=== PATIENT | female | born 1950 | race Caucasian/White ===

== ENCOUNTER → 2017-01-07 06:39 | Day surgery (SDC) | payer MEDICARE, OTHER ==
--- NOTE | 2016-12-12 08:26 | HP ---
PREOPERATIVE HISTORY AND PHYSICAL: DATE OF SURGERY/ADMISSION: 01/07/17 DATE OF OFFICE VISIT/ENCOUNTER: 12/11/16 ATTENDING SURGEON: Lashonda Lea MD (dictated by MULU Hardy) PROCEDURE: Left ulnar nerve decompression at the elbow. CHIEF COMPLAINT: Numbness and tingling, left hand. HISTORY OF PRESENT ILLNESS: This is a 66-year-old female who is complaining of numbness and tingling in her left ulnar two fingers for the past two and a half years. It has gotten worse since October after she fell in a parking lot and hit her elbow on the ground. Since then, she is feeling increased weakness in her left hand and increased numbness and tingling in the hand. She recently had a nerve conduction study done, which showed ulnar neuropathy at the left elbow. She is interested in pursuing surgical intervention at this time in the form of left ulnar nerve decompression at the elbow. PAST MEDICAL HISTORY: 1. Type 2 diabetes. 2. Sleep apnea, wears a CPAP at night. 3. Hypertension. 4. Hypercholesterolemia. 5. Asthma. 6. Depression. 7. GERD. PAST SURGICAL HISTORY: 1. Bilateral breast reduction in 2015. 2. Cholecystectomy in 2000. 3. Tubal ligation in 1975. 4. Hysterectomy in 1979. 5. Eyelid lift, bilateral 2012. CURRENT MEDICATIONS: 1. Advair Diskus 250/50 mcg per dose 1 puff b.i.d. 2. Albuterol sulfate p.r.n. 3. Atorvastatin calcium 10 mg daily. 4. Caltrate 600 plus vitamin D, use as directed. 5. Escitalopram oxalate 20 mg daily. 6. Ferrous sulfate 325 mg twice a week. 7. Lisinopril/hydrochlorothiazide 10/12.5 mg daily. 8. Metformin/HCl 500 mg b.i.d. 9. Montelukast sodium 10 mg daily. 10. Multivitamin daily. 11. Naproxen 500 mg b.i.d. 12. Omeprazole 20 mg daily. 13. Vitamin C 500 mg daily. ALLERGIES: 1. ERYTHROMYCIN causes diarrhea. 2. IMODIUM causes hand swelling. 3. PENICILLIN causes hives. 4. TEDRAL causes dry heaves. FAMILY MEDICAL HISTORY: Significant for skin cancer, hypertension, and dementia. SOCIAL HISTORY: The patient is retired. She denies tobacco use, recreational drug use, and alcohol use. REVIEW OF SYSTEMS: General: Negative for fevers, chills, or night sweats. No known anesthesia problems in the past. HEENT: Negative for headache, lightheadedness, or syncopal episodes. Integumentary: Negative for abrasions, lesions, or open wounds. Cardiothoracic: Negative for chest pain, palpitations , or edema. Positive for hypertension. Pulmonary: Positive for shortness of breath with exertion and asthma. Negative for chronic cough or COPD. GI: Positive for GERD. Negative for nausea, vomiting, diarrhea, or constipation. : Negative for nocturia, urinary frequency, urgency, history of UTIs, or kidney problems. Musculoskeletal: Positive for current complaint. Negative for chronic or intermittent back pain or history of fractures. Neurological: Negative for paresthesia, numbness, history of seizure, stroke, or epilepsy. Endocrine: Positive for diabetes type 2. Negative for thyroid issues. Hematologic: Negative for easy bruising, anemia, excessive bleeding, or history of DVT. Infectious Disease: Negative for history of MRSA, hepatitis C , or HIV. PHYSICAL EXAMINATION GENERAL: Well-developed, well-nourished, 66-year-old female, in no acute distress. VITAL SIGNS: Height 5 feet 5-1/4 inches, weight 240 pounds, pulse rate 74, blood pressure 136/75. HEENT: Normocephalic, atraumatic. Pupils are equal, round, and reactive to light and accommodation. Extraocular movements are intact. NECK: Supple. No palpable lymph nodes. Throat is clear. PULMONARY: Lungs are clear to auscultation bilaterally. No wheezes, rales, or rhonchi. CARDIOVASCULAR: Regular rate and rhythm. S1, S2. No murmurs, rubs, or gallops. No edema. ABDOMEN: Positive bowel sounds, soft, and nontender. MUSCULOSKELETAL: On exam of her left upper extremity, she has a positive Tinel' s sign at the ulnar nerve at the elbow. She has decreased sensation to light touch over the ulnar nerve distribution in the hand. She has weakness with finger abduction compared to the right hand and a slight amount of dorsal interosseous wasting. She has good motion in her fingers, wrists, and elbow. Skin is intact. NEUROLOGIC: Alert and oriented x3. Cranial nerves II through XII are intact. Sensation is intact to light touch. IMAGING: EMG nerve conduction study shows ulnar nerve entrapment at the left elbow. ASSESSMENT: Ulnar neuropathy of the left elbow. PLAN: The patient is scheduled to undergo a left ulnar nerve decompression at the elbow with Dr. Lea on 01/07/17. She will follow up in the office 10 to 14 days postop for followup and suture removal. A prescription for [place] was e- scribed to the patient's pharmacy for postoperative pain management. MULU HARDY [id number]/[facility] #: [id number] MTDD
[~2017-01-07 06:39] MED LIST: Buffered Lidocaine 1% SYR 3ML* 3 ML/SYR SYRINGE INTRADERM ONE; Buffered Lidocaine 1% SYR 3ML* 3 ML/SYR SYRINGE ONE; Bupivacaine 0.5% SDV PF* 30 ML VIAL ONE; Clindamycin 900 MG IVPREMIX(* 900 MG/50 ML SDV IV ONE; KETAMINE HCL* 50 MG/ML 10 ML VIAL ONE; Lidocaine 1% INJ* 10 MG/ML 30 ML SDV ONE; Lidocaine 2% PF * 5 ML VIAL ONE; Midazolam* 1 MG/ML 2 ML VIAL (2 MG) ONE; Propofol* 10 MG/ML 20 ML BTL IV PUSH ONE; Sodium Citrate/Citric Acid* 15 ML UDC ONE; Sodium Citrate/Citric Acid* 15 ML UDC PO ONE; fentaNYL* 50 MCG/ML 2 ML VIAL (100 MCG VIAL) ONE
[2017-01-07 09:36] VITALS: BP 118/75
--- NOTE | 2017-01-07 23:36 | OP ---
DATE OF OPERATION: 01/07/[address] [facility] DATE OF : 52 SURGEON: Lashonda Lea MD [place] SUPERVISOR: MULU Hardy ANESTHESIOLOGIST: Jony Blackmon DO ANESTHESIA: Local MAC. PRE-OP DIAGNOSIS: Left ulnar nerve compression at the elbow. POST-OP DIAGNOSIS: Left ulnar nerve compression at the elbow. OPERATIVE PROCEDURE: Left ulnar nerve decompression. INDICATIONS: Yoli is a 66-year-old female with numbness and tingling in the ulnar nerve distribution of her left hand. Nerve conduction study shows ulnar nerve compression of the elbow. She presents for left ulnar nerve decompression at the elbow. ESTIMATED BLOOD LOSS: Zero. TOURNIQUET TIME: 25 minutes. DESCRIPTION OF PROCEDURE: The patient was brought to the operating room and was given a sedation anesthetic and a local infiltration of 10 cc of 1% plain lidocaine on the medial aspect of her left elbow. Skin of her left extremity was prepped and draped in the usual sterile fashion. The upper extremity was exsanguinated and the tourniquet elevated to 250 mmHg. A curvilinear incision was made centered between the medial epicondyle and the tip of the olecranon process. We dissected bluntly through the subcutaneous tissue down to the ulnar nerve proximal to the elbow. It was carefully dissected out proximally through the cubital tunnel where it was very very tight and then into the FCU muscle. The superficial and deep portion of the FCU fascia was divided and the muscle was divided and the nerve was completely freed up into the proximal forearm and into the distal aspect of the upper arm. The medial intermuscular septum was incised. The wound was copiously irrigated with saline. Hemostasis was achieved. The subcutaneous tissue was closed with 2-0 Polysorb and the skin with skin darlene. The wound was dressed with Xeroform, 4x4, Webril, and an Daniel wrap. The patient tolerated the procedure well and was brought to the recovery room in good condition. [id number]/[facility] #: [id number] MTDD
== END | disposition home or self-care (01) ==
LOC: OREAST 06:39
PROVIDERS: ATTEND Orthopaedic Surgery
DX: G56.22 Lesion of ulnar nerve, left upper limb (principal); I10 Essential (primary) hypertension; G47.33 Obstructive sleep apnea (adult) (pediatric); E11.9 Type 2 diabetes mellitus without complications
CPT/HCPCS: A9270-GY; J2250; J2704; J3010

== ENCOUNTER 2018-01-24 21:19 | Emergency (ER) | payer MEDICARE, OTHER ==
--- OUTSIDE RECORDS SUMMARY | 2018-01-24 21:27 | XMS REPORT ---
:1950 External Reference #:[id number] Author Organization [facility] Address [address] [place] [address] Phone [phone] Care Team Providers Name Role Phone Carson Wells MD Care Team Information City Director Unavailable Carson Wells MD Primary Care Physician Unavailable Payers Type Date Identification Numbers Payment Provider Subscriber Medicare Primary Effective: Policy Number: Medicare Belkis Hdz 2016 [id number] PayID: [id number] [address] [facility] [place] [address] Medigap Part B Effective: 2016 Policy Number: [id number] [facility] Yoli Hdz Expires: 2071 PayID: [id number] [place] [address] Problems Date Description Provider Status Onset: 05/29/1999 Essential hypertension Kingston Bush M.D. Active Onset: 01/13/2006 Gastroesophageal reflux disease Carson Wells M.D. Active Onset: 01/13/2006 Asthma without status asthmaticus Carson Wells M.D. Active Onset: 01/13/2006 Sleep apnea Carson Wells M.D. Active Onset: 02/05/2007 Depressive disorder Carson Wells M.D. Active Onset: 08/16/2013 Hyperlipidemia Carson Wells M.D. Active Onset: 03/17/2015 Type 2 diabetes mellitus Carson Wells M.D. Active Onset: 01/13/2006 Deficiency anemias Carson Wells M.D. Inactive Inactive: 03/07/2017 Onset: 08/13/2007 Obesity Carson Wells M.D. Inactive Inactive: 03/07/2017 Onset: 09/14/2012 Symptom of skin and integumentary Carson Wells M.D. Inactive tissue Inactive: 03/07/2017 Onset: 08/16/2013 Obstructive sleep apnea syndrome Carson Wells M.D. Inactive Inactive: 03/07/2017 Onset: 11/11/2014 Benign essential hypertension Carson Wells M.D. Inactive Inactive: 03/07/2017 Onset: 03/17/2015 Mixed hyperlipidemia Carson Wells M.D. Inactive Inactive: 03/07/2017 Onset: 12/25/2015 Disorder of bone Carson Wells M.D. Inactive Inactive: 03/07/2017 Onset: 12/25/2015 Candidal vulvovaginitis Carson Wells M.D. Inactive Inactive: 03/07/2017 Onset: 07/15/2016 Atypical depressive disorder Carson Wells M.D. Inactive Inactive: 03/07/2017 Onset: 11/15/2016 Immunization Carson Wells M.D. Inactive Inactive: 03/07/2017 Onset: 11/15/2016 Knee pain Carson Wells M.D. Inactive Inactive: 03/07/2017 Onset: 11/15/2016 Tinea cruris Carson Wells M.D. Inactive Inactive: 03/07/2017 Onset: 11/15/2016 Lesion of ulnar nerve Carson Wells M.D. Inactive Inactive: 03/07/2017 Family History Date Family Member(s) Problem(s) Comments First Sister Osteoporosis Social History Type Date Description Comments Marital Status Patient is Cigarette Use Never Smoked Cigarettes Smoking Patient has never smoked Allergies, Adverse Reactions, Alerts Date Description Reaction Status Severity Comments 08/04/1998 Penicillin active 03/29/2003 Imodium AD active 11/20/2004 Erythromycin active 09/14/2012 Tedral vomiting active Medications Medication Date Status Form Strength Qnty SIG Indications Ordering Provider Diflucan 01/15 Active Tablets 200mg 2tabs take one Brunilda C. by mouth justin Adame NP signs of yeast infection, repeat dose after 4 days. Terconazole 01/15 Active Cream 0.4% 45gm Insert one Brunilda C. applicator rojelio Adame NP vaginally at bedtime for 7 days Nystatin 09/11 Active Powder [id number] 1unit apply 2-3 Carson F. t/GM s times dipesh Wells M.D. Pristiq 03/07 Active Tablets ER 50mg 90tab 1 by mouth Carson F. 24HR s every day Joanne Wells Freestyle Test 02/05 Active Strips 100un test daily Carson F. its or as mihir Wells M.D. dx: e11.9 Freestyle lite Atorvastatin 02/19 Active Tablets 10mg 90tab 1 by mouth Carson F. Calcium /2014 s every day Joanne Wells Freestyle 02/08 Active Kit W/Device 1unit use as Carson F. Insulinx Blood /2014 s directed Russell Glucose dx:250.02 M.DJulieta Monitoring System Freestyle 02/07 Active Misc 1Box test twice Carson F. Lancets /2014 daily Russell, dx:250.02 M.DJulieta freestyle litraji Metformin HCL ER 12/07 Active Tablets ER 500mg 90tab 1 by mouth Carson F. /2014 24HR s every day Joanne Wells Lisinopril-[place] 11/11 Active Tablets 10-12.5mg 90tab 1 by mouth Carson F. chlorothiazide /2013 s every day Joanne Wells Advair 250/50 06/22 Active 250/50 3unit one Carson F. /2004 s inhalation mike Wells bid MLola Singulair 06/22 Active Tablets 10mg 90tab 1 po qd Carson F. s Joanne Wells Omeprazole 03/13 Active 20mg 90uni 1 po qd Carson F. /2004 ts Joanne Wells Albuterol 04/21 Active 3unit 2 puffs Carson F. Inhaler /2000 s every 3-4 deo Wells M.D. needed Caltrate 600+D Active Tablets 600-800mg every day Unknown Plus Minerals /0000 -Unit other than fri and friday. Iron 00 Active Tablets 325(65Fe) 1 tab by Unknown /0000 mg mouth wed and sun Multivitamins 00 Active Capsules 1 by mouth Unknown /0000 every day Vitamin C Active Tablets 500mg take one Unknown /0000 every day Montelukast 0000 Active Tablets 10mg 1 by mouth Unknown Sodium /0000 every day Metrogel-Vaginal 01/27 Hx Gel 0.75% 70gm 1 applicator Evelyn, - ful by way FOOD CROPS FARM HAND 08/10 of at bedtime x 7 days Diflucan 11/15 Hx Tablets 150mg 1tabs 1 by mouth Carson F. times Shallmorro, - once, M.D. 12/24 Freestyle Test 02/05 Hx Strips test daily . dx: e11.9 Russell, - M.D. 02/05 Diflucan 12/25 Hx Tablets 150mg 1tabs 1 by mouth Carson F. zenon Wells, - once, M.D. 07/15 Zostavax 08/28 Hx Solution [id number] 1dose inject . Rec 0.65ML Russell, - M.D. 11/15 Ibuprofen 07/12 Hx Tablets 800mg 180ta 1 by mouth 724.5 Bernice /2015 bs q8 hours Evelyn, - two times FOOD CROPS F[employer] HAND 08/28 a day food Cyclobenzaprine 07/12 Hx Tablets 10mg 60tab take one 4.5 [facility] s tablet by Evelyn, - mouth FOOD CROPS FARM HAND 08/28 twice a day as needed pain Oxycodone-Acetam 07/12 Hx Tablets 5-325mg 100ta 1 or 2 by 724.5 [place] inophen bs mouth Evelyn, - every 6 FOOD CROPS F[employer] HAND 08/28 hours needed for pain Freestyle 07/12 Hx Strips 1Box blood Carson F. Insulinx Blood /2014 sugar Shallish, Glucose Test - checks M.D. Strips 02/05 once daily Freestyle 02/07 Hx Strips 100un test blood Carson F. Insulinx Blood its sugar Shallish, Glucose Test - twice a M.D. Strips 07/12 day dx: 250.02 Nystatin 05/23 Hx Powder [id number] 1bott apply bid Carson F. t/GM le jazmínn Russell, - M.D. 11/11 Dyazide 05/23 Hx Capsules 37.5-25mg 60cap 1 po qd Carson F. s Russell - M.DJulieta 11/11 Gentak 08/16 Hx Solution 0.3% 5ml 1-2 gtts Carson F. qid for Russell, - 3-4 days M.D. 11/11 Betamethasone 11/07 Hx Cream 0.05% 45gm apply bid Carson F. Dipropionate -tid prn Russell - M.DJulieta 11/15 Mometasone 02/13 Hx Cream 0.1% 45gm apply tid Carson F. Furoate prn Russell - M.DJulieta 09/14 Lexapro 12/03 Hx Tablets 20mg 90tab 1 po qd Carson F. s Isabel Wells M.DJulieta 03/07 Venlafaxine HCL 08/12 Hx Tablets ER 75mg 30tab take one Carson F. ER 24HR s tablet by Russell, - mouth one M.D. 09/14 time daily Caltrate 600+D 08/12 Hx Chewtabs 600-400mg 1 po qd Carson F. -Unit Russell - M.Alia 07/12 Iron 08/12 Hx Tablets 240(27Fe) OTC 1 po wed . mg & Isabel Quezada M.Alia 11/15 Topicort 08/10 Hx Cream 0.25% 1Tub rub in bid Carson F. prn Russell - Kathy.Alia 02/13 Mask Of 06/17 Hx Carson F. Yojana Lees Russell, And Supplies For - M.D. Cpap 08/10 Lexapro 06/13 Hx Tablets 20mg 90tab 1 po qd Carson F. Isabel Barboza.DJulieta 08/12 Iron 06/13 Hx Tablets 325(65Fe) OTC 1 po qd / Carson F. mg OTC Isabel Wells.DJulieta 08/12 Cpap Supplies 05/15 Hx mask of Carson F. Russell lees, Isabel chow M.D. 02/13 supplies dx sleep apnea 780.57 Econazole 10/24 Hx Cream 1% 85gm Apply Carson F. Nitrate topically Russell, - to M.D. 12/24 affected area daily Hydrocortisone 10/24 Hx Cream 0.2% 60gm Apply Carson F. Valerate sparingly Russell, - topically M.DJulieta 11/15 to affected area 2 times a day Lexapro 10/24 Hx Tablets 20mg 135ta 1 1/2po qd Carson F. /2008 bs Russell - M.Alia 06/13 Caltrate 600+D 03/26 Hx Chewtabs 2 po qd Carson F. Plus Russell - M.Alia 08/12 Iron 12/06 Hx Tablets 1 PO qd Carson F. /2008 Russell - M.Alia 06/13 Sudatuss DM 12/06 Hx Syrup Carson F. /2008 Russell - M.DJulieta 12/06 Levaquin 12/06 Hx Tablets 500mg 7tabs 1 po qd Carson F. /2008 Russell - M.DJulieta 02/13 Cpap Mask Of 10/19 Hx dx sleep Carson F. Choice And apnea Russell, [place] - M.DJulieta 02/13 Boniva 08/13 Hx 150mg 3unit 1 Qmonth Carson F. /2006 mike Wells - M.Alia 02/16 Ceftin 02/27 Hx Tablets 250mg 14tab 1 po bid Carson F. /2006 mike Wells - M.DJulieta 08/13 Actonel 01/14 Hx Tablets 35mg;500 12tab Take as Carson F. Calcium /2006 mg s Directed Russell - M.DJulieta 08/13 Nasonex 12/18 Hx Suspension 50mcg 1unit 2 sprays Carson F. Intranasal King /2006 s martin Wells - nostril qd M.DJulieta 12/06 Feso4 07/01 Hx 325mg 60uni 1 po bid Carson F. /2004 ts Russell - M.DJulieta 01/13 Lexapro 05/03 Hx 10mg 90uni 1 po qd Carson F. /2003 Isabel Razo M.D. 10/24 Vioxx 01/05 Hx 25mg 30uni 1 po qd Carson F. Isabel Razo M.D. 05/03 Physical Therapy 01/05 Hx treatment Carson F. and Isabel Wells M.D. 05/03 Right Shoulder Pain Celexa 06/10 Hx 20mg 60uni 1 po qd Carson F. Isabel Razo M.D. 05/04 Aciphex 02/11 Hx 20mg 90uni 1 po qd Carson F. Isabel Razo M.D. 03/13 Flovent 02/11 Hx 110mcg 3unit 2 puffs qd Carson F. Isabel Barboza M.D. 06/22 Naproxen 02/11 Hx 375mg 50uni One tid Kingston Terrell ts For One Isabel Bush M.D. 02/14 tid prn /2002 Azmacort Inhaler 04/21 Hx 4unit Two Puffs Kingston Terrell s qid prn Isabel Bush M.D. 02/11 Clarinex 04/21 Hx 10mg 30uni 1 qd prn Kingston Terrell Isabel Jenkins M.D. 11/20 Zithromax 09/19 Hx 250mg 6unit 2 Tabs Day Kingston Julieta s 1 Isabel Bush M.D. 09/24 Tab qd Days 2 Thru 5 Doxycycline 09/28 Hx 100mg 20uni 1 PO bid Kingston Julieta Isabel Jenkins M.D. 10/08 Adalat 09/02 Hx 30mg 30uni 1 qd Kingston Terrell Isabel Jenkins M.D. 03/11 Alupent 09/02 Hx 0unit Use as Kingston Terrell s Isabel Centeno M.D. 09/02 Azmacort Inhaler 09/02 Hx 0unit Use as Kingston Terrell s Isabel Centeno M.D. 09/28 Proventil HFA 09/02 Hx 2unit 2 Puffs Kingston Terrell /1996 s Q4H prn Isabel Bush M.D. 04/21 Immunizations CPT Code Status Date Vaccine Lot # [id number] Given 11/03/2017 High-Dose, Influenza Virus Vacccine-fluzone 65 [id number] and older 14821 Given 11/15/2016 Influenza Vac, Quadrivalent, Slit Virus, Im [id number] 43148 Given 12/25/2015 Zostivax [id number] 50025 Given 08/28/2015 Influenza Vac, Quadrivalent, Slit Virus, Im [id number] 73788 Given 08/16/2013 DO Not Use Split Influenza Virus Vaccine [id number] 11860 Given 09/14/2012 DO Not Use Split Influenza Virus Vaccine [id number] 56969 Given 08/12/2011 DO Not Use Split Influenza Virus Vaccine [id number] 89007 Given 08/10/2010 Pneumococcal Immunization [id number] 36323 Given 08/10/2010 DO Not Use Split Influenza Virus Vaccine [id number] 61067 Given 02/05/2007 Tdap Tetanus, W Pertussis [id number] 83090 Given 09/29/2006 DO Not Use Split Influenza Virus Vaccine [id number] 37276 Given 09/05/2005 DO Not Use Split Influenza Virus Vaccine [id number] Given 05/31/1985 Tetanus And Diptheria Adult Preservative Free >7Yrs Vital Signs Date Vital Result Comment 01/15/2018 BP Systolic 122 mmHg BP Diastolic 62 mmHg Heart Rate 88 /min Body Temperature 96.8 F Respiratory Rate 18 /min Height 65.5 inches 5'5.50" measured Weight 234.00 lb BMI (Body Mass Index) 38.3 kg/m2 08/11/2017 BP Systolic 134 mmHg BP Diastolic 72 mmHg Heart Rate 96 /min Body Temperature 97.3 F Height 65.5 inches 5'5.50" measured Weight 233.12 lb BMI (Body Mass Index) 38.2 kg/m2 03/07/2017 BP Systolic 118 mmHg BP Diastolic 70 mmHg Heart Rate 78 /min Body Temperature 98.1 F Respiratory Rate 16 /min Height 65.5 inches 5'5.50" measured Weight 226.00 lb BMI (Body Mass Index) 37.0 kg/m2 01/27/2017 BP Systolic 120 mmHg BP Diastolic 64 mmHg Heart Rate 72 /min Body Temperature 98.1 F Height 65.5 inches 5'5.50" measured Weight 227.50 lb BMI (Body Mass Index) 37.3 kg/m2 12/25/2016 BP Systolic 128 mmHg BP Diastolic 68 mmHg Heart Rate 78 /min Body Temperature 98.4 F Height 65.5 inches 5'5.50" measured Weight 238.38 lb BMI (Body Mass Index) 39.1 kg/m2 11/15/2016 BP Systolic 138 mmHg BP Diastolic 64 mmHg Heart Rate 90 /min Body Temperature 97.7 F Respiratory Rate 16 /min Height 65.5 inches 5'5.50" measured Weight 238.38 lb BMI (Body Mass Index) 39.1 kg/m2 07/15/2016 BP Systolic 130 mmHg BP Diastolic 80 mmHg Heart Rate 78 /min Body Temperature 99.1 F Respiratory Rate 16 /min Height 65.5 inches 5'5.50" measured Weight 245.00 lb BMI (Body Mass Index) 40.1 kg/m2 12/25/2015 BP Systolic 144 mmHg BP Diastolic 84 mmHg Heart Rate 78 /min Body Temperature 98.1 F Respiratory Rate 16 /min Height 65.75 inches 5'5.75" Weight 237.00 lb BMI (Body Mass Index) 38.5 kg/m2 08/28/2015 BP Systolic 122 mmHg BP Diastolic 84 mmHg Heart Rate 78 /min Body Temperature 97.8 F Respiratory Rate 17 /min Height 65.75 inches 5'5.75" Weight 225.38 lb BMI (Body Mass Index) 36.6 kg/m2 07/26/2015 BP Systolic 128 mmHg BP Diastolic 74 mmHg Heart Rate 84 /min Body Temperature 97.6 F Respiratory Rate 16 /min Height 65.75 inches 5'5.75" Weight 225.00 lb BMI (Body Mass Index) 36.6 kg/m2 07/12/2015 BP Systolic 112 mmHg BP Diastolic 74 mmHg Heart Rate 88 /min Body Temperature 97.8 F Respiratory Rate 16 /min Height 65.75 inches 5'5.75" Weight 220.00 lb BMI (Body Mass Index) 35.8 kg/m2 03/17/2015 BP Systolic 130 mmHg BP Diastolic 76 mmHg Heart Rate 96 /min Body Temperature 98.0 F Height 65.75 inches 5'5.75" Weight 232.50 lb with medical boot BMI (Body Mass Index) 37.8 kg/m2 12/30/2014 BP Systolic 142 mmHg BP Diastolic 84 mmHg Heart Rate 66 /min Body Temperature 97.6 F Respiratory Rate 16 /min Height 65.75 inches 5'5.75" Weight 250.00 lb BMI (Body Mass Index) 40.7 kg/m2 11/11/2014 BP Systolic 154 mmHg BP Diastolic 92 mmHg Heart Rate 84 /min Body Temperature 97.3 F Respiratory Rate 16 /min Height 65.75 inches 5'5.75" Weight 250.00 lb BMI (Body Mass Index) 40.7 kg/m2 05/23/2014 BP Systolic 150 mmHg BP Diastolic 90 mmHg Heart Rate 76 /min Body Temperature 98.6 F Respiratory Rate 15 /min Height 65.75 inches 5'5.75" Weight 261.00 lb BMI (Body Mass Index) 42.4 kg/m2 08/16/2013 BP Systolic 130 mmHg BP Diastolic 80 mmHg Heart Rate 72 /min Body Temperature 98.3 F Respiratory Rate 14 /min Height 65.75 inches 5'5.75" Weight 259.00 lb BMI (Body Mass Index) 42.1 kg/m2 05/10/2013 BP Systolic 132 mmHg BP Diastolic 90 mmHg Heart Rate 68 /min Body Temperature 96.7 F Respiratory Rate 18 /min Height 65.75 inches 5'5.75" Weight 264.00 lb BMI (Body Mass Index) 42.9 kg/m2 01/05/2013 BP Systolic 160 mmHg BP Diastolic 92 mmHg Heart Rate 66 /min Body Temperature 98.1 F Height 65.75 inches 5'5.75" Weight 257.50 lb BMI (Body Mass Index) 41.9 kg/m2 11/07/2012 BP Systolic 144 mmHg BP Diastolic 88 mmHg Heart Rate 74 /min Body Temperature 97.8 F Height 65.75 inches 5'5.75" Weight 256.00 lb BMI (Body Mass Index) 41.6 kg/m2 09/14/2012 BP Systolic 122 mmHg BP Diastolic 84 mmHg Heart Rate 66 /min Body Temperature 98.5 F Height 65.75 inches 5'5.75" Weight 244.00 lb BMI (Body Mass Index) 39.7 kg/m2 Right Visual Acuity Distance 20/30 corrected Left Visual Acuity Distance 20/30 corrected 02/14/2012 BP Systolic 140 mmHg BP Diastolic 80 mmHg Heart Rate 72 /min Body Temperature 97.9 F Height 65.75 inches 5'5.75" Weight 257.00 lb BMI (Body Mass Index) 41.8 kg/m2 08/12/2011 BP Systolic 132 mmHg BP Diastolic 82 mmHg Heart Rate 68 /min Body Temperature 97.0 F Height 65.75 inches 5'5.75" Weight 261.00 lb BMI (Body Mass Index) 42.4 kg/m2 08/10/2010 BP Systolic 120 mmHg BP Diastolic 82 mmHg Heart Rate 72 /min Body Temperature 98.3 F Height 65.75 inches 5'5.75" Weight 238.00 lb BMI (Body Mass Index) 38.7 kg/m2 06/13/2010 BP Systolic 148 mmHg BP Diastolic 60 mmHg Heart Rate 88 /min Body Temperature 98.7 F Respiratory Rate 20 /min Height 65.75 inches 5'5.75" Weight 245.00 lb BMI (Body Mass Index) 39.8 kg/m2 04/27/2010 BP Systolic 130 mmHg BP Diastolic 92 mmHg Heart Rate 80 /min Weight 246.00 lb 10/24/2009 BP Systolic 136 mmHg BP Diastolic 76 mmHg Heart Rate 76 /min Respiratory Rate 18 /min Height 65.75 inches 5'5.75" Weight 243.00 lb BMI (Body Mass Index) 39.5 kg/m2 02/16/2009 BP Systolic 132 mmHg BP Diastolic 80 mmHg Heart Rate 76 /min Body Temperature 98.3 F Weight 233.00 lb 12/06/2008 BP Systolic 132 mmHg BP Diastolic 80 mmHg Heart Rate 80 /min Body Temperature 99.1 F Height 65.75 inches 5'5.75" Weight 233.00 lb BMI (Body Mass Index) 37.9 kg/m2 08/13/2007 BP Systolic 138 mmHg BP Diastolic 74 mmHg Heart Rate 80 /min Body Temperature 97.7 F Height 65.75 inches 5'5.75" Weight 220.00 lb BMI (Body Mass Index) 35.8 kg/m2 02/27/2007 Heart Rate 80 /min Body Temperature 98.7 F Height 65.75 inches 5'5.75" Weight 221.00 lb BMI (Body Mass Index) 35.9 kg/m2 02/05/2007 BP Systolic 120 mmHg BP Diastolic 64 mmHg Heart Rate 66 /min Body Temperature 98.9 F Height 65.75 inches 5'5.75" Weight 219.00 lb BMI (Body Mass Index) 35.6 kg/m2 01/22/2007 BP Systolic 118 mmHg BP Diastolic 70 mmHg Heart Rate 72 /min Body Temperature 99.1 F Height 65.5 inches 5'5.50" 12/18/2006 BP Systolic 130 mmHg BP Diastolic 70 mmHg Heart Rate 72 /min Body Temperature 99.3 F Height 65.5 inches 5'5.50" 09/29/2006 BP Systolic 128 mmHg BP Diastolic 76 mmHg Heart Rate 80 /min Height 65.5 inches 5'5.50" Weight 215.00 lb BMI (Body Mass Index) 35.2 kg/m2 01/13/2006 BP Systolic 160 mmHg BP Diastolic 90 mmHg Heart Rate 80 /min Height 65.5 inches 5'5.50" Weight 206.00 lb BMI (Body Mass Index) 33.8 kg/m2 09/05/2005 BP Systolic 130 mmHg BP Diastolic 80 mmHg Heart Rate 78 /min Weight 202.00 lb 06/22/2005 BP Systolic 130 mmHg BP Diastolic 90 mmHg Heart Rate 100 /min Body Temperature 98.8 F O2 % BldC Oximetry 98 % Weight 206.00 lb 11/20/2004 BP Systolic 150 mmHg BP Diastolic 70 mmHg Heart Rate 100 /min Weight 208.00 lb 05/03/2004 BP Systolic 138 mmHg BP Diastolic 70 mmHg Heart Rate 66 /min Weight 195.00 lb 01/05/2004 BP Systolic 156 mmHg BP Diastolic 90 mmHg Heart Rate 84 /min Weight 202.00 lb 02/14/2003 BP Systolic 132 mmHg BP Diastolic 80 mmHg Heart Rate 80 /min Weight 198.00 lb 06/10/2002 BP Systolic 142 mmHg BP Diastolic 92 mmHg Heart Rate 76 /min Weight 195.00 lb 02/11/2002 BP Systolic 160 mmHg BP Diastolic 90 mmHg Heart Rate 74 /min Weight 184.00 lb 04/21/2001 BP Systolic 124 mmHg BP Diastolic 78 mmHg Heart Rate 76 /min Weight 174.00 lb 09/19/2000 BP Systolic 128 mmHg LA SM Cuff BP Diastolic 80 mmHg LA SM Cuff Body Temperature 97.5 F Weight 162.00 lb 03/11/2000 BP Systolic 130 mmHg LA SM Cuff BP Diastolic 88 mmHg LA SM Cuff Weight 152.00 lb 09/28/1999 BP Systolic 140 mmHg BP Diastolic 82 mmHg Body Temperature 98.0 F Weight 151.00 lb 05/29/1999 BP Systolic 120 mmHg LA SM Cuff BP Diastolic 74 mmHg LA SM Cuff Weight 172.00 lb 08/04/1998 BP Systolic 122 mmHg Ra LG Cuff BP Diastolic 72 mmHg Ra LG Cuff Body Temperature 98.6 F Weight 195.00 lb 09/02/1997 BP Systolic 138 mmHg BP Diastolic 72 mmHg Weight 194.00 lb Results Test Date Test Result H/L Range Note Comprehensive Metabolic Prof 08/19/2017 Sodium 136 mEq/L 134-149 Potassium 4.1 mEq/L 3.6-5.5 Chloride 98 mEq/L 94-112 Carbon Dioxide 26 mEq/L 21-32 Glucose 168 mg/dL High 70-105 1 BUN 12 mg/dL 6-26 Creatinine 1.0 mg/dL 0.6-1.4 BUN/Creat Ratio 12.0 CALC 8.0-36.0 Calcium 9.3 mg/dL 8.6-10.2 Total Protein 6.6 g/dL 6.4-8.3 Albumin 4.3 g/dL 3.8-5.5 Globulin 2.3 g/dL 2.0-4.8 A/G Ratio 1.9 CALC 0.6-2.3 Alk. Phosphatase 71 U/L 30-110 Alt (SGPT) 19 U/L 7-35 Ast (Sgot) 16 U/L 5-34 Total Bilirubin 0.6 mg/dL 0.2-1.3 GFR Non- 59 ml/min/1.73m^ Low >=60 GFR >60 ml/min/1.73m^ >=60 Lipid Profile 08/19/2017 Cholesterol 159 mg/dL 120-200 Triglycerides 123 mg/dL 30-200 HDL Cholesterol 42 mg/dL 30-85 LDL (Calculated) 92 CALC 0-129 VLDL Cholesterol 25 mg/dL 0-50 HDL Risk Factor 3.8 CALC 0.0-4.4 Complete Blood Count 08/19/2017 WBC 7.7 x10^3/UL 3.6-9.6 RBC 5.14 x10^6/UL 3.90-5.70 HGB 15.4 g/dL 12.1-17.2 HCT 47 % 36-50 MCV 91.0 fL 82.2-97.4 MCH 30.0 pg 27.6-33.3 MCHC 33.0 g/dL 33.0-35.5 RDW 14.0 % High 11.6-13.7 PLT 305 x10^3/UL 150-400 MPV 6.4 fL Low 7.4-10.4 Gran # 4.9 x10^3/UL 1.5-7.2 Lymph# 2.4 x10^3/UL 0.7-4.9 Hardin# 0.4 x10^3/UL 0.1-0.9 Gran % 62.3 % 42.2-75.2 Lymph % 32.0 % 20.5-51.1 Hardin% 5.7 % 1.7-9.3 Laboratory test finding 08/19/2017 TSH 3.07 mIU/L 0.50-6.00 CK 68 U/L 26-140 2 Laboratory test finding 08/19/2017 Hemoglobin A1c (Fma) 6.9 % High 4.1- 5.7 Laboratory test finding 03/04/2017 Hemoglobin A1c (Fma) 6.2 % % High 4.1- 5.7 Laboratory test finding 01/07/2017 Point of Care Glucose 130 mg/dL High 74 -106 3 Complete Blood Count 12/25/2016 WBC 10.1 x10^3/UL High 3.6-9.6 RBC 4.56 x10^6/UL 3.90-5.70 HGB 14.2 g/dL 12.1-17.2 HCT 41 % 36-50 MCV 90.0 fL 82.2-97.4 MCH 31.0 pg 27.6-33.3 MCHC 34.4 g/dL 33.0-35.5 RDW 14.1 % High 11.6-13.7 PLT 286 x10^3/UL 150-400 MPV 6.4 fL Low 7.4-10.4 Gran # 7.0 x10^3/UL 1.5-7.2 Lymph# 2.7 x10^3/UL 0.7-4.9 Hardin# 0.4 x10^3/UL 0.1-0.9 Gran % 69.0 % 42.2-75.2 Lymph % 26.8 % 20.5-51.1 Hardin% 4.2 % 1.7-9.3 Laboratory test 12/25/2016 Hemoglobin A1c (Fma) 6.8 % High 4.1-5.7 finding Laboratory test 08/13/2016 Point of Care Glucose 196 mg/dL High 74-106 4 finding Laboratory test 08/13/2016 Point of Care Glucose 183 mg/dL High 74-106 5 finding Laboratory test 08/13/2016 Point of Care Glucose 219 mg/dL High 74-106 6 finding Laboratory test 08/13/2016 Point of Care Glucose 205 mg/dL High 74-106 7 finding Laboratory test 08/13/2016 Surgical Pathology SEE RESULT BELOW 8 finding CBC Auto Diff 08/07/2016 White Blood Count 8.2 10^3/uL 3.5-10.8 Red Blood Count 4.94 10^6/uL 4.0-5.4 Hemoglobin 14.6 g/dL 12.0-16.0 Hematocrit 44 % 35-47 Mean Corpuscular Volume 89 fL 80-97 Mean Corpuscular Hemoglobin 30 pg 27-31 Mean Corpuscular HGB Conc 33 g/dL 31-36 Red Cell Distribution Width 14 % 10.5-15 Platelet Count 260 10^3/uL 150-450 Mean Platelet Volume 8 um3 7.4-10.4 Abs Neutrophils 4.7 10^3/uL 1.5-7.7 Abs Lymphocytes 2.4 10^3/uL 1.0-4.8 Abs Monocytes 0.5 10^3/uL 0-0.8 Abs Eosinophils 0.5 10^3/uL 0-0.6 Abs Basophils 0.1 10^3/uL 0-0.2 Abs Nucleated RBC 0.01 10^3/uL Granulocyte % 58.1 % 38-83 Lymphocyte % 29.4 % 25-47 Monocyte % 5.8 % 1-9 Eosinophil % 5.9 % 0-6 Basophil % 0.8 % 0-2 Nucleated Red Blood Cells % 0.1 Type & Screen 08/07/2016 Patient Blood Type O Positive Antibody Screen NEGATIVE Ua - Micro (Fma) 12/25/2015 Appearance clear Color yellow Glucose, Urine (Fma/CMC/CTX) neg Bilirubin neg Ketones neg SP Grav 1.015 Blood small PH 5.5 Protein neg Urobil 0.2 Nitrite neg Leukocytes (Fma/CMC/Centrex) neg Hyaline - /Lpf Granular - /Lpf WBC (Fma,Centrex) - RBC 0-1 Mucus - /Lpf Epith rare /Lpf Bacteria - /Hpf Amorphous - /Lpf Crystals, Fluid (Fma/CMC/CTX) - Z#Comments - Laboratory test finding 12/25/2015 Hemoglobin A1c (Fma/CMC,CX) 6.3 % High 4.1-5.7 Microalb, Random (Fma/CMC/CTX) <5.0 mg/L mg/L 0.5-37 Vaginitis/Vaginosis Dna Probe 12/25/2015 Allie species Negative Negative 9, 10 Gardnerella vaginalis Negative Negative 9, 11 Trichomonas vaginalis Negative Negative 9, 12 Comprehensive Metabolic Prof 12/25/2015 Sodium 137 mEq/L 134-149 Potassium 4.0 mEq/L 3.6-5.5 Chloride 94 mEq/L 94-112 Carbon Dioxide 30 mEq/L 21-32 Glucose 176 mg/dL High 70-105 13 BUN 18 mg/dL 6-26 Creatinine 1.0 mg/dL 0.6-1.4 BUN/Creat Ratio 18.0 CALC 8.0-36.0 Calcium 9.5 mg/dL 8.6-10.2 Total Protein 7.1 g/dL 6.4-8.3 Albumin 4.1 g/dL 3.8-5.5 Globulin 3.0 g/dL 2.0-4.8 A/G Ratio 1.4 CALC 0.6-2.3 Alk. Phosphatase 89 U/L 30-110 Alt (SGPT) 16 U/L 7-35 Ast (Sgot) 21 U/L 5-34 Total Bilirubin 0.4 mg/dL 0.2-1.3 GFR Non- 59 ml/min/1.73m^ Low >=60 GFR >60 ml/min/1.73m^ >=60 Lipid Profile 12/25/2015 Cholesterol 160 mg/dL 120-200 Triglycerides 136 mg/dL 30-200 HDL Cholesterol 45 mg/dL 30-85 LDL (Calculated) 88 CALC 0-129 VLDL Cholesterol 27 mg/dL 0-50 HDL Risk Factor 3.6 CALC 0.0-4.4 Laboratory test finding 12/25/2015 Free T4 1.27 ng/dL 0.75-1.54 TSH 4.22 mIU/L 0.50-6.00 CK 68 U/L 26-140 Complete Blood Count 12/25/2015 WBC 7.3 x10^3/UL 3.6-9.6 RBC 4.76 x10^6/UL 3.90-5.70 HGB 14.6 g/dL 12.1-17.2 HCT 43 % 36-50 MCV 91.0 fL 82.2-97.4 MCH 30.8 pg 27.6-33.3 MCHC 33.7 g/dL 33.0-35.5 RDW 13.8 % High 11.6-13.7 PLT 251 x10^3/UL 150-400 MPV 6.9 fL Low 7.4-10.4 Gran # 5.1 x10^3/UL 1.5-7.2 Lymph# 2.0 x10^3/UL 0.7-4.9 Hardin# 0.2 x10^3/UL 0.1-0.9 Gran % 67.8 % 42.2-75.2 Lymph % 28.3 % 20.5-51.1 Hardin% 3.9 % 1.7-9.3 Comprehensive Metabolic Prof 08/28/2015 Sodium 140 mEq/L 134-149 Potassium 4.0 mEq/L 3.6-5.5 Chloride 99 mEq/L 94-112 Carbon Dioxide 27 mEq/L 21-32 Glucose 122 mg/dL High 70-105 14 BUN 24 mg/dL 6-26 Creatinine 1.0 mg/dL 0.6-1.4 BUN/Creat Ratio 24.0 CALC 8.0-36.0 Calcium 10.2 mg/dL 8.6-10.2 Total Protein 7.4 g/dL 6.4-8.3 Albumin 4.4 g/dL 3.8-5.5 Globulin 3.0 g/dL 2.0-4.8 A/G Ratio 1.5 CALC 0.6-2.3 Alk. Phosphatase 98 U/L 30-110 15 Alt (SGPT) 17 U/L 7-35 Ast (Sgot) 16 U/L 5-34 Total Bilirubin 0.3 mg/dL 0.2-1.3 GFR Non- 60 ml/min/1.73m^ >=60 GFR >60 ml/min/1.73m^ >=60 Lipid Profile 08/28/2015 Cholesterol 173 mg/dL 120-200 Triglycerides 196 mg/dL 30-200 HDL Cholesterol 46 mg/dL 30-85 LDL (Calculated) 88 CALC 0-129 VLDL Cholesterol 39 mg/dL 0-50 HDL Risk Factor 3.8 CALC 0.0-4.4 Complete Blood Count 08/28/2015 WBC 10.3 x10^3/UL High 3.6-9.6 RBC 5.00 x10^6/UL 3.90-5.70 HGB 15.2 g/dL 12.1-17.2 HCT 46 % 36-50 MCV 91.0 fL 82.2-97.4 MCH 30.5 pg 27.6-33.3 MCHC 33.4 g/dL 33.0-35.5 RDW 14.0 % High 11.6-13.7 PLT 298 x10^3/UL 150-400 MPV 6.7 fL Low 7.4-10.4 Gran # 6.3 x10^3/UL 1.5-7.2 Lymph# 3.5 x10^3/UL 0.7-4.9 Hardin# 0.5 x10^3/UL 0.1-0.9 Gran % 60.6 % 42.2-75.2 Lymph % 34.2 % 20.5-51.1 Hardin% 5.2 % 1.7-9.3 Laboratory test finding 08/28/2015 TSH 3.49 mIU/L 0.50-6.00 CK 57 U/L 26-140 Laboratory test finding 08/28/2015 Hemoglobin A1c (Fma/CMC,CX) 6.3 % High 4.1-5.7 Microalb, Random (Fma/CMC/CTX) <5.0 mg/L 0.5-37 Laboratory test finding 07/07/2015 Urine Culture And SEE RESULT 16 Sensitivities BELOW Comprehensive Metabolic 02/07/2015 Sodium 138 mEq/L 134-149 Prof Potassium 4.0 mEq/L 3.6-5.5 Chloride 99 mEq/L 94-112 Carbon Dioxide 28 mEq/L 21-32 Glucose 129 mg/dL High 70-105 17 BUN 21 mg/dL 6-26 Creatinine 1.1 mg/dL 0.6-1.4 BUN/Creat Ratio 19.1 CALC 8.0-36.0 Calcium 9.9 mg/dL 8.6-10.2 Total Protein 7.7 g/dL 6.4-8.3 Albumin 4.5 g/dL 3.8-5.5 Globulin 3.2 g/dL 2.0-4.8 A/G Ratio 1.4 CALC 0.6-2.3 Alk. Phosphatase 85 U/L 30-110 Alt (SGPT) 24 U/L 7-35 Ast (Sgot) 19 U/L 5-34 Total Bilirubin 0.6 mg/dL 0.2-1.3 Lipid Profile 02/07/2015 Cholesterol 209 mg/dL High 120-200 Triglycerides 120 mg/dL 30-200 HDL Cholesterol 40 mg/dL 30-85 LDL (Calculated) 145 CALC High 0-129 VLDL Cholesterol 24 mg/dL 0-50 HDL Risk Factor 5.2 CALC High 0.0-4.4 Complete Blood Count 02/07/2015 WBC 8.4 x10^3/UL 3.6-9.6 RBC 5.07 x10^6/UL 3.90-5.70 HGB 15.7 g/dL 12.1-17.2 HCT 48 % 36-50 MCV 94.0 fL 82.2-97.4 MCH 30.9 pg 27.6-33.3 MCHC 33.0 g/dL 33.0-35.5 RDW 12.5 % 11.6-13.7 PLT 277 x10^3/UL 150-400 MPV 7.6 fL 7.4-10.4 Gran # 5.6 x10^3/UL 1.5-7.2 Lymph# 2.6 x10^3/UL 0.7-4.9 Hardin# 0.2 x10^3/UL 0.1-0.9 Gran % 64.7 % 42.2-75.2 Lymph % 31.9 % 20.5-51.1 Hardin% 3.4 % 1.7-9.3 Laboratory test finding 02/07/2015 Free T4 1.20 ng/dL 0.75-1.54 18 TSH 3.16 mIU/L 0.50-6.00 Laboratory test finding 02/07/2015 Hemoglobin A1c 6.8 % High 4.1-5.7 (Fma/CMC,CX) Laboratory test finding 11/26/2014 Glucose 176 mg/dL High 70-100 Blood Urea Nitrogen 10 mg/dL 6-24 Creatinine 11/26/2014 Creatinine 0.95 mg/dL 0.51-0.95 Egfr Non- 59.4 >60 Egfr 76.4 >60 19 Laboratory test finding 11/26/2014 Hemoglobin A1c 8.1 % High Less than 6.0 20 Comprehensive Metabolic Prof 05/10/2013 Albumin 4.1 g/dL 3.8-5.5 Alk. Phos. 90 U/L 30-110 Alt (SGPT) 29 U/L 7-35 Ast (Sgot) 24 U/L 5-34 BUN 12 mg/dL 6-26 Calcium 9.0 mg/dL 8.6-10.2 Chloride 99 mEq/L 94-112 Creatinine 1.0 mg/dL 0.6-1.4 Carbon Dioxide 27 mEq/L 21-32 Glucose 131 mg/dL High 70-105 21 Sodium 140 mEq/L 134-149 Total Bilirubin 0.4 mg/dL 0.2-1.3 Total Protein 6.5 g/dL 6.3-8.1 Potassium 4.2 mEq/L 3.6-5.5 Globulin 2.4 g/dL 2.0-4.8 A/G Ratio 1.8 Calc 0.6-2.3 BUN/Creat Ratio 12.4 Calc 8.0-36.0 Laboratory test finding 05/10/2013 Free T4 0.96 ng/dL 0.75-1.54 TSH 3.61 mIU/L 0.50-6.00 Lipid Profile 05/10/2013 Cholesterol 214 mg/dL High 120-200 HDL 39 mg/dL 30-85 Triglycerides 120 mg/dL 30-200 HDL Risk Factor 5.4 CALC High 0.0-4.4 LDL (Calculated) 151 CALC High 0-129 VLDL (Calculated) 24 mg/dL 0-50 CBC Electronic (a) 05/10/2013 WBC 6.8 3.6-9.6 RBC 4.89 3.90-5.70 Hemoglobin (Fma/CMC/CTX) 15.0 g/dL 12.1 - 17.2 Hematocrit (Fma/CMC/CTX) 46.9 % 36.1 - 50.3 Platelets 270 10^3/ul 150-400 Lymph% 38.4 20.5-51.1 Mixed% 5.5 Neutrophils % 56.1 Mean Corpuscular Vol 96 82.2-97.4 Mean Corpuscular Hemoglobin 30.6 27.6-33.3 Mean Corpuscular Hemo Concen 31.9 Low 32.0-36.0 RDW 13.7 11.6-13.7 Mean Platelet Volume 6.7 6.5-11.0 Comprehensive Metabolic Prof 09/28/2012 Albumin 4.5 g/dL 3.8-5.5 Alk. Phos. 94 U/L 30-110 Alt (SGPT) 23 U/L 7-35 Ast (Sgot) 21 U/L 5-34 BUN 11 mg/dL 6-26 Calcium 10.1 mg/dL 8.6-10.2 Chloride 104 mEq/L 94-112 Creatinine 1.1 mg/dL 0.6-1.4 Carbon Dioxide 25 mEq/L 21-32 Glucose 141 mg/dL High 70-105 22 Sodium 142 mEq/L 134-149 Total Bilirubin 0.4 mg/dL 0.2-1.3 Total Protein 6.9 g/dL 6.3-8.1 Potassium 4.6 mEq/L 3.6-5.5 Globulin 2.4 g/dL 2.0-4.8 A/G Ratio 1.9 Calc 0.6-2.2 BUN/Creat Ratio 10.2 Calc 8.0-36.0 Lipid Profile 09/28/2012 Cholesterol 228 mg/dL High 120-200 HDL 41 mg/dL 30-85 Triglycerides 129 mg/dL 30-200 HDL Risk Factor 5.6 CALC High 0.0-4.4 LDL (Calculated) 161 CALC High 0-129 VLDL (Calculated) 26 mg/dL 0-50 Laboratory test finding 09/28/2012 TSH 4.90 mIU/L 0.50-6.00 CBC Electronic (a) 09/28/2012 WBC 7.3 3.6-9.6 RBC 4.85 3.90-5.70 Hemoglobin (Fma/CMC/CTX) 14.7 g/dL 12.1 - 17.2 Hematocrit (Fma/CMC/CTX) 45.1 % 36.1 - 50.3 Platelets 265 10^3/ul 150-400 Lymph% 28.6 20.5-51.1 Mixed% 4.6 Neutrophils % 66.8 Mean Corpuscular Vol 93 82.2-97.4 Mean Corpuscular Hemoglobin 30.3 27.6-33.3 Mean Corpuscular Hemo Concen 32.5 32.0-36.0 RDW 12.0 11.6-13.7 Mean Platelet Volume 6.8 6.5-11.0 Ua - Micro ([facility]) 09/14/2012 Appearance yellow Color clear Glucose neg Bilirubin neg Ketones trace SP Grav 1.020 Blood mod PH 8.5 Protein neg Urobil 1.0 Nitrite neg Leukocytes (a/CMC/[facility]) neg Hyaline - /Lpf Granular - /Lpf WBC ([facility]) 0-2 RBC 10-15 Mucus - /Lpf Epith occ /Lpf Bacteria trace /Hpf Amorphous - /Lpf Crystals, Fluid ([place]) - Z#Comments - Comprehensive Metabolic Prof 02/14/2012 Albumin 4.2 g/dL 3.8-5.5 Alk. Phos. 108 U/L 30-110 Alt (SGPT) 27 U/L 7-35 Ast (Sgot) 21 U/L 5-34 BUN 11 mg/dL 6-26 Calcium 9.5 mg/dL 8.6-10.2 Chloride 103 mEq/L 94-112 Creatinine 1.0 mg/dL 0.6-1.4 Carbon Dioxide 25 mEq/L 21-32 Glucose 140 mg/dL High 70-105 Sodium 139 mEq/L 134-149 Total Bilirubin 0.4 mg/dL 0.2-1.3 Total Protein 6.7 g/dL 6.3-8.1 Potassium 4.3 mEq/L 3.6-5.5 Globulin 2.5 g/dL 2.0-4.8 A/G Ratio 1.6 Calc 0.6-2.2 BUN/Creat Ratio 11.7 Calc 8.0-36.0 Lipid Profile 02/14/2012 Cholesterol 209 mg/dL High 120-200 HDL 41 mg/dL 30-85 Triglycerides 133 mg/dL 30-200 HDL Risk Factor 5.2 CALC High 0.0-4.0 LDL (Calculated) 142 CALC High 0-129 VLDL (Calculated) 27 mg/dL 0-50 Laboratory test finding 02/14/2012 Free T4 1.07 ng/dL 0.75-1.54 TSH 3.00 mIU/L 0.50-6.00 Laboratory test finding 02/14/2012 Hemoglobin A1c (a/[facility] 6.2 % High 4.1-5.7 CBC Electronic ([facility]) 02/14/2012 WBC 6.1 3.6-9.6 RBC 4.79 3.90-5.70 Hemoglobin ([facility]ma/CMC/CTX) 14.9 g/dL 12.1 - 17.2 Hematocrit ([facility]ma/CMC/CTX) 44.2 % 36.1 - 50.3 Platelets 278 10^3/ul 150-400 Lymph% 29.3 20.5-51.1 Mixed% 8.8 Neutrophils % 61.9 Mean Corpuscular Vol 92 82.2-97.4 Mean Corpuscular Hemoglobin 31.1 27.6-33.3 Mean Corpuscular Hemo Concen 33.8 32.0-36.0 RDW 12.2 11.6-13.7 Mean Platelet Volume 7.2 6.5-11.0 Ua - Micro ([facility]) 08/14/2011 Appearance yellow Color clear Glucose neg Bilirubin neg Ketones neg SP Grav 1.025 Blood moderate PH 5.5 Protein neg Urobil 0.2 Nitrite neg Leukocytes (a/CMC/[facility]) neg Hyaline - /Lpf Granular - /Lpf WBC ([facility]) 5-8 RBC 3-5 Mucus - /Lpf Epith occ /Lpf Bacteria trace /Hpf Amorphous - /Lpf Crystals, Fluid (a/CMC/CTX) - Z#Comments - CBC Electronic ([facility]) 08/14/2011 WBC 6.3 3.6-9.6 RBC 4.75 3.90-5.70 Hemoglobin (a/CMC/CTX) 14.9 g/dL 12.1 - 17.2 Hematocrit (a/CMC/CTX) 43.7 % 36.1 - 50.3 Platelets 251 10^3/ul 150-400 Lymph% 28.1 20.5-51.1 Mixed% 11.5 Neutrophils % 60.4 Mean Corpuscular Vol 92 82.2-97.4 Mean Corpuscular Hemoglobin 31.2 27.6-33.3 Mean Corpuscular Hemo Concen 34.0 32.0-36.0 RDW 12.7 11.6-13.7 Mean Platelet Volume 7.6 6.5-11.0 Comprehensive Metabolic Prof 08/14/2011 Albumin 4.1 g/dL 3.8-5.5 Alk. Phos. 100 U/L 30-110 Alt (SGPT) 24 U/L 7-35 Ast (Sgot) 20 U/L 5-34 BUN 14 mg/dL 6-26 Calcium 8.6 mg/dL 8.6-10.2 Chloride 103 mEq/L 94-112 Creatinine 0.9 mg/dL 0.6-1.4 Carbon Dioxide 26 mEq/L 21-32 Glucose 131 mg/dL High 70-105 23 Sodium 142 mEq/L 134-149 Total Bilirubin 0.4 mg/dL 0.2-1.3 Total Protein 6.7 g/dL 6.3-8.1 Potassium 4.3 mEq/L 3.6-5.5 Globulin 2.6 g/dL 2.0-4.8 A/G Ratio 1.6 Calc 0.6-2.2 BUN/Creat Ratio 15.4 Calc 8.0-36.0 Lipid Profile 08/14/2011 Cholesterol 202 mg/dL High 120-200 HDL 32 mg/dL 30-85 Triglycerides 125 mg/dL 30-200 HDL Risk Factor 6.3 CALC High 0.0-4.0 LDL (Calculated) 145 CALC High 0-129 VLDL (Calculated) 25 mg/dL 0-50 Laboratory test finding 08/14/2011 TSH 4.58 mIU/L 0.50-6.00 Ict Hemoccult ([facility]) 09/03/2010 Ict Hemoccult (1) neg Ict Hemoccult-(2) neg Ict-Hemoccult (3) neg CBC ([facility]) 08/10/2010 WBC 6.1 3.6-9.6 RBC 5.15 3.90-5.70 Hemoglobin (Fma/CMC/CTX) 15.3 g/dL 12.1 - 17.2 Hematocrit (a/CMC/CTX) 48.3 % 36.1 - 50.3 Mean Corpuscular Vol 93.8 82.2-97.4 Mean Corpuscular Hemaglobin 29.7 27.6-33.3 Mean Corpuscular Hemo Concen 31.7 Low 33.0-36.0 Platelets 247 10^3/ul 150-400 Lymph% 42.1 20.5-51.1 Mixed% 5.7 Neutrophils % 52.2 RDW 13.6 11.6-13.7 Mean Platelet Volume 10.7 High 7.4-10.4 Ua - Micro ([facility]) 08/10/2010 Appearance CLEAR Color YELLOW Glucose NEG Bilirubin NEG Ketones NEG SP Grav 1.015 Blood MODERATE PH 7.0 Protein NEG Urobil 0.2EU/DL Nitrite NEG Leukocytes (a/[facility]) NEG Hyaline - /Lpf Granular - /Lpf WBC ([facility]) 2-4 RBC 12-14 Mucus - /Lpf Epith FEW /Lpf Bacteria TRACE /Hpf Amorphous - /Lpf Crystals, Fluid ([facility]CTX) - Comprehensive Metabolic Prof 08/10/2010 Albumin 4.3 g/dL 3.8-5.5 Alk. Phos. 68 U/L 30-110 Alt (SGPT) 28 U/L 7-35 Ast (Sgot) 21 U/L 5-34 BUN 11 mg/dL 6-26 Calcium 9.2 mg/dL 8.6-10.2 Chloride 104 mEq/L 94-112 Creatinine 1.0 mg/dL 0.6-1.4 Carbon Dioxide 25 mEq/L 21-32 Glucose 102 mg/dL 70-105 Sodium 146 mEq/L 134-149 Total Bilirubin 0.4 mg/dL 0.2-1.3 Total Protein 7.0 g/dL 6.3-8.1 Potassium 4.2 mEq/L 3.6-5.5 Globulin 2.6 g/dL 2.0-4.8 A/G Ratio 1.7 Calc 0.6-2.2 BUN/Creat Ratio 11.8 Calc 8.0-36.0 Lipid Profile 08/10/2010 Cholesterol 190 mg/dL 120-200 HDL 31 mg/dL 30-85 Triglycerides 81 mg/dL 30-200 HDL Risk Factor 6.2 CALC 4.2-7.0 LDL (Calculated) 143 CALC High 0-129 VLDL (Calculated) 16 mg/dL 0-50 Laboratory test finding 08/10/2010 TSH 1.34 mIU/L 0.50-6.00 CBC ([facility]) 04/27/2010 WBC 7.6 3.6-9.6 RBC 5.02 3.90-5.70 Hemoglobin ([facility]CTX) 15.9 g/dL 12.1 - 17.2 Hematocrit ([facility]CTX) 45.9 % 36.1 - 50.3 Mean Corpuscular Vol 91.4 82.2-97.4 Mean Corpuscular Hemaglobin 31.7 27.6-33.3 Mean Corpuscular Hemo Concen 34.6 33.0-36.0 Platelets 260 10^3/ul 150-400 Lymph% 33.3 20.5-51.1 Mixed% 10.3 Neutrophils % 56.4 RDW 13.9 High 11.6-13.7 Mean Platelet Volume 10.4 7.4-10.4 Ua - Micro ([facility]) 04/27/2010 Appearance CLEAR Color YELLOW Glucose NEG Bilirubin NEG Ketones NEG SP Grav 1.020 Blood MOD PH 7.0 Protein NEG Urobil 0.2 Nitrite NEG Leukocytes ([facility]ma/CMC/[facility]) NEG Hyaline - /Lpf Granular - /Lpf WBC ([facility]) 2-3 RBC 10-12 Mucus - /Lpf Epith OCC /Lpf Bacteria 1+ /Hpf Amorphous - /Lpf Crystals, Fluid ([facility]ma/CMC/CTX) - Z#Comments - Comprehensive Metabolic Prof 04/27/2010 Albumin 4.3 g/dL 3.8-5.5 Alk. Phos. 90 U/L 30-110 Alt (SGPT) 24 U/L 7-35 Ast (Sgot) 20 U/L 5-34 BUN 14 mg/dL 6-26 Calcium 9.8 mg/dL 8.6-10.2 Chloride 100 mEq/L 94-112 Creatinine 1.0 mg/dL 0.6-1.4 Carbon Dioxide 24 mEq/L 21-32 Glucose 110 mg/dL High 70-105 Sodium 144 mEq/L 134-149 Total Bilirubin 0.4 mg/dL 0.2-1.3 Total Protein 7.0 g/dL 6.3-8.1 Potassium 4.3 mEq/L 3.6-5.5 Globulin 2.6 g/dL 2.0-4.8 A/G Ratio 1.6 Calc 0.6-2.2 BUN/Creat Ratio 13.9 Calc 8.0-36.0 Lipid Profile 04/27/2010 Cholesterol 226 mg/dL High 120-200 HDL 41 mg/dL 30-85 Triglycerides 98 mg/dL 30-200 HDL Risk Factor 5.5 CALC 4.2-7.0 LDL (Calculated) 165 CALC High 0-129 VLDL (Calculated) 20 mg/dL 0-50 Laboratory test finding 04/27/2010 TSH 1.99 mIU/L 0.50-6.00 Ua - Micro ([facility]) 02/16/2009 Appearance clear Color yellow Glucose - Bilirubin - Ketones - SP Grav 1.015 Blood moderate PH 5.5 Protein - Urobil 0.2 Nitrite - Leukocytes ([facility]ma/CMC/[facility]) - Hyaline - /Lpf Granular - /Lpf WBC (a,[facility]) 0-1 RBC 12-15 Mucus sm amt /Lpf Epith few /Lpf Bacteria 2+ /Hpf Amorphous - /Lpf Crystals, Fluid ([facility]ma/CMC/CTX) - Z#Comments - Complete Blood Count 02/16/2009 WBC 7.4 x10^3/uL 3.6-9.6 24 Gran# 5.6 x10^3/uL 1.5-7.2 24 Gran% 75.5 % High 42.2-75.2 24 HCT 47 % 36-50 24 HGB 15.3 g/dL 12.1-17.2 24 Lymph# 1.7 x10^3/uL 0.7-4.9 24 Lymph% 22.4 % 20.5-51.1 24 MCH 29.3 pg 27.6-33.3 24 MCV 89.0 fL 82.2-97.4 24 MCHC 33.0 g/dL 33.0-35.5 24 Mo# 0.2 x10^3/uL 0.1-0.9 24 Mo% 2.1 % 1.7-9.3 24 MPV 8.1 fL 7.4-10.4 24 PLT 271 x10^3/uL 150-400 24 RBC 5.23 x10^6/uL 3.90-5.70 24 RDW 13.1 % 11.6-13.7 24 Comprehensive Metabolic Prof 02/16/2009 Albumin 4.1 g/dL 3.8-5.5 24 Alk. Phos. 81 U/L 30-110 24 Alt (SGPT) 26 U/L 7-35 24 Ast (Sgot) 22 U/L 5-34 24 BUN 12 mg/dL 6-26 24 Calcium 9.8 mg/dL 8.6-10.2 24 Chloride 101 mEq/L 94-112 24 Creatinine 1.0 mg/dL 0.6-1.4 24 Carbon Dioxide 23 mEq/L 21-32 24 Glucose 126 mg/dL High 70-105 24 Sodium 142 mEq/L 134-149 24 Total Bilirubin 0.4 mg/dL 0.2-1.3 24 Total Protein 6.8 g/dL 6.3-8.1 24 Potassium 3.6 mEq/L 3.6-5.5 24 Globulin 2.7 g/dL 2.0-4.8 24 A/G Ratio 1.5 Calc 0.6-2.2 24 BUN/Creat Ratio 12.2 Calc 8.0-36.0 24 Lipid Profile 02/16/2009 Cholesterol 209 mg/dL High 120-200 24 HDL 35 mg/dL 30-85 24 Triglycerides 134 mg/dL 30-200 24 HDL Risk Factor 5.9 CALC 4.2-7.0 24 LDL (Calculated) 147 CALC High 0-129 24 VLDL (Calculated) 27 mg/dL 0-50 24 Laboratory test finding 02/16/2009 TSH 2.98 mIU/L 0.50-6.00 24 Free T4 0.99 ng/dL 0.75-1.54 24 Laboratory test finding 02/27/2007 Throat - Beta Strep [facility] NEGATIVE Ict Hemoccult ([facility]) 02/27/2007 Ict Hemoccult (1) NEG Low 02/13/07 Ict Hemoccult-(2) NEG Low 02/14/07 Ict-Hemoccult (3) NEG Low 02/15/07 Ict Hemoccult ([facility]) 02/04/2007 Ict Hemoccult (1) POSITIVE High Ict Hemoccult-(2) NEG Ict-Hemoccult (3) NEG Comprehensive Metabolic Prof 01/01/2007 Albumin 3.9 g/dL 3.8-5.5 24 Alk. Phos. 82 U/L 30-110 24 Alt (SGPT) 16 U/L 7-35 24 Ast (Sgot) 15 U/L 5-34 24 BUN 11 mg/dL 6-26 24 Calcium 9.4 mg/dL 8.6-10.2 24 Chloride 102 mEq/L 94-112 24 Creatinine 0.9 mg/dL 0.6-1.4 24 Carbon Dioxide 28 mEq/L 21-32 24 Glucose 101 mg/dL 70-105 24 Sodium 143 mEq/L 134-149 24 Total Bilirubin 0.2 mg/dL 0.2-1.3 24 Total Protein 6.8 g/dL 6.3-8.1 24 Potassium 4.6 mEq/L 3.6-5.5 24 Globulin 2.9 g/dL 2.0-4.8 24 A/G Ratio 1.3 Calc 0.6-2.2 24 BUN/Creat Ratio 12.2 Calc 8.0-36.0 24 Lipid Profile 01/01/2007 Cholesterol 182 mg/dL 120-200 24 HDL 48 mg/dL 30-85 24 Triglycerides 71 mg/dL 30-200 24 HDL Risk Factor 3.8 CALC Low 4.2-7.0 24 LDL (Calculated) 120 CALC 0-129 24 VLDL (Calculated) 14 mg/dL 0-50 24 Complete Blood Count 01/01/2007 WBC 6.1 x10\\S\\3/uL 3.6-9.6 24 Gran# 3.6 x10\\S\\3/uL 1.5-7.2 24 Gran% 58.5 % 42.2-75.2 24 HCT 43 % 36-50 24 HGB 14.4 g/dL 12.1-17.2 24 Lymph# 2.2 x10\\S\\3/uL 0.7-4.9 24 Lymph% 35.7 % 20.5-51.1 24 MCH 30.1 pg 27.6-33.3 24 MCV 90.2 fL 82.2-97.4 24 MCHC 33.4 g/dL 33.0-35.5 24 Mo# 0.4 x10\\S\\3/uL 0.1-0.9 24 Mo% 5.8 % 1.7-9.3 24 MPV 8.3 fL 7.4-10.4 24 PLT 272 x10\\S\\3/uL 150-400 24 RBC 4.79 x10\\S\\6/uL 3.90-5.70 24 RDW 13.9 % High 11.6-13.7 24 Laboratory test finding 01/01/2007 TSH 2.70 mIU/L 0.50-6.00 24 Ua - Micro ([facility]) 12/18/2006 Appearance CLEAR Color DK BROWN Glucose NEG Bilirubin NEG Ketones TRACE SP Grav 1.020 Blood 2+ PH 6.5 Protein, Random Urine NEG Urobil 0.2 Nitrite NEG Leukocytes ([facility]/CMC/[facility]) NEG Hyaline - /Lpf Granular - /Lpf WBC ([facility]) 0-2 RBC, Fluid 15-20 Mucus - /Lpf Epith - /Lpf Bacteria - /Hpf Amorphous - /Lpf Crystals, Urine ([facility]/CMC/CTX) - /Lpf Misc - Ua - Micro (a New) 01/13/2006 Appearance CLEAR Color LT YELLOW Glucose NEG Bilirubin NEG Ketones NEG SP Grav <=1.005 Blood MODERATE PH 5.0 Protein, Random Urine NEG Urobil 0.2 Nitrite NEG Leukocytes NEG Hyaline - /Lpf Granular - /Lpf WBC, Fluid 2-4 RBC, Fluid 8-10 Mucus - /Lpf Epith OCC /Lpf Bacteria TRACE /Hpf Amorphous - /Lpf Crystals - /Lpf Z#Comments - Laboratory test 11/18/2005 [facility] IRON&IBC;FERR;CBC See Image finding Report Laboratory test 09/05/2005 Iron, Total 152 g/dL High 60-150 finding ([facility]/CMC/Cent jud[facility]) Tibc ([facility]/CMC) 346 g/dL 245-400 Iron Sat. % ([facility]/CMC/CTX) 44.0 10-45 CBC Electronic (a) 09/05/2005 WBC 5.5 3.6-9.6 Lymphocytes 39.9 % 20.5 - 51.1 Monocytes 6.1 % 1.7-9.3 Granulocytes 54.0 % 42.2 - 75.2 Lymphocytes 2.2 10^3/uL 0.7 - 4.9 Monocytes 0.3 10^3/uL 0.1 - 0.9 Granulocytes 3.0 10^3/uL 1.5 - 7.2 RBC 5.54 3.90-5.70 Hemoglobin ([facility]/CMC/CTX) 14.2 g/dL 12.1 - 17.2 Hematocrit ([facility]/CMC/CTX) 43.5 % 36.1 - 50.3 Mean Corpuscular Vol 78.5 Low 82.2-97.4 25 Mean Corpuscular Hemaglobin 25.5 Low 27.6-33.3 26 Mean Corpuscular Hemo Concen 32.5 Low 33.0-36.0 27 RDW 23.8 High 11.6-13.7 28 Platelets 332. 10^3/ul 150-400 Mean Platelet Volume 7.8 7.4-10.4 Basic Metabolic ([facility]) 06/22/2005 Glucose, Serum (a/CMC/CTX) 98 mg/dL 70 -105 BUN ([facility]ma/CMC/[facility]rex) 10 mg/dL 6-26 Creatinine (a/CMC/CTX) 1.0 mg/dL 0.6-1.4 BUN/Creatinin Ratio 9.7 8.0-36 Sodium 142 134-149 Potassium 4.1 3.6-5.5 Chloride 100 mEq/L 94-112 Co2 25 21-32 Calcium ([facility]/CMC/[facility]) 9.8 mg/dL 8.6-10.2 Lipid Profile ([facility]) Female 06/22/2005 Cholesterol 203 mg/dL High 120-200 Triglyceride 94 mg/dL 30-200 HDL-Chol 47 mg/dL 30-85 LDL, Calculated ([facility] 138 CALC High 0-129 LDL Direct (/[facility]) - mg/dL 0-130 VLDL 19 0-50 HDL Risk Factor ([facility]) 4.3 CALC 4.2-7.0 CBC Electronic ([facility]) 06/22/2005 WBC 7.0 3.6-9.6 Lymphocytes 40.4 % 20.5 - 51.1 Monocytes 6.5 % 1.7-9.3 Granulocytes 53.1 % 42.2 - 75.2 Lymphocytes 2.8 10^3/uL 0.7 - 4.9 Monocytes 0.5 10^3/uL 0.1 - 0.9 Granulocytes 3.7 10^3/uL 1.5 - 7.2 RBC 5.22 3.90-5.70 Hemoglobin (a/CMC/CTX) 11.8 g/dL Low 12.1 - 17.2 Hematocrit ([facility]/CMC/CTX) 36.8 % 36.1 - 50.3 Mean Corpuscular Vol 70.5 Low 82.2-97.4 Mean Corpuscular Hemaglobin 22.6 Low 27.6-33.3 Mean Corpuscular Hemo Concen 32.0 Low 33.0-36.0 RDW 20.6 High 11.6-13.7 Platelets 420. 10^3/ul High 150-400 Mean Platelet Volume 7.8 7.4-10.4 Laboratory test finding 06/22/2005 Iron, Total (a/CMC/[facility]) 9 g/dL Low 60-150 Tibc ([facility]/CMC) 411 g/dL High 245-400 Iron Sat. % (a/CMC/CTX) 2.2 Low 10-45 Free T4/TSH 06/22/2005 TSH ([place] 2.05 uIU/ml 0.5-6.0 (a/[facility]) Free T4 1.19 ng/dL 0.75-1.54 CBC Electronic ([facility]) 01/01/2005 WBC 5.5 3.6-9.6 Lymphocytes 31.4 % 20.5 - 51.1 Monocytes 5.1 % 1.7-9.3 Granulocytes 63.5 % 42.2 - 75.2 Lymphocytes 1.7 10^3/uL 0.7 - 4.9 Monocytes 0.3 10^3/uL 0.1 - 0.9 Granulocytes 3.5 10^3/uL 1.5 - 7.2 RBC 4.51 3.90-5.70 Hemoglobin ([facility]/CMC/CTX) 10.2 g/dL Low 12.1 - 17.2 Hematocrit (a/CMC/CTX) 32.7 % Low 36.1 - 50.3 Mean Corpuscular Vol 72.5 Low 82.2-97.4 Mean Corpuscular Hemaglobin 22.5 Low 27.6-33.3 Mean Corpuscular Hemo Concen 31.0 Low 33.0-35.5 RDW 18.4 High 11.6-13.7 Platelets 392 10^3/ul 150-400 Mean Platelet Volume 7.7 7.4-10.4 Lipid Profile ([facility]) Female 01/01/2005 Cholesterol 186 mg/dL 120-200 Triglyceride 68 mg/dL 30-200 HDL-Chol 34 mg/dL 30-85 LDL, Calculated ([facility] 139 CALC High 0-129 LDL, Direct - mg/dL 0-130 VLDL 14 0-50 HDL Risk Factor ([facility]) 5.5 CALC 4.2-7.0 Laboratory test 01/01/2005 TSH ([facility]) 2.74 uIU/ml 0.5-6.0 finding Comp Metabolic ([facility]) 01/01/2005 Glucose, Serum ([facility]/CMC/CTX) 115 mg/dL 70 -118 Female BUN (a/[facility]) 10 mg/dL 6-26 Creatinine, Serum 1.0 mg/dL 0.6-1.4 BUN/Creatinin Ratio 10.3 8.0-36 Sodium 149 134-149 Potassium 4.6 3.6-5.5 Chloride 105 mEq/L 94-112 Co2 29 21-32 Calcium ([facility]) 9.6 mg/dL 8.6-10.2 Total Protein 6.8 g/dL 6.3-8.1 Albumin (a/[facility]) 4.4 3.8-5.5 Globulin 2.4 2.0-4.8 A/G Ratio (A/G Ratio) 1.8 0.6-2.2 Alkaline Phosphatase (F/C/CTX) 77 U/L 30-110 Alt (SGPT) 12 10-40 Ast (Sgot) (a/[facility]) 12 U/mL 5-34 Bilirubin, Total 0.3 mg/dL 0.2-1.3 Occult Blood (3) 06/21/2002 Occult Blood #1 NEG 06/14/02 Occult Blood #2 NEG 06/16/02 Occult Blood #3 NEG 06/17/02 Ua - Micro ([facility] 06/20/2002 Appearance CLEAR YELLOW Glucose - Bilirubin - Ketones - SP Grav 1.010 Blood TRACE-INTACT PH 7.5 Protein - Urobil 0.2 Nitrite - Leukocytes - Hyaline - /Lpf Granular - /Lpf WBC'S 0-1 RBC'S 1-3 Mucus - /Lpf Epith FEW Bacteria RARE Amorphous - /Lpf Crystals - /Lpf CBC With Diff (a) 06/20/2002 WBC 4.9 3.6-9.6 Lymphocytes 39.2 % 20.5 - 51.1 Monocytes 4.6 % 1.7-9.3 Granulocytes 56.2 % 42.2 - 75.2 Lymphocytes 1.9 10^3/uL 0.7 - 4.9 Monocytes 0.2 10^3/uL 0.1 - 0.9 Granulocytes 2.8 10^3/uL 1.5 - 7.2 RBC 5.16 3.90-5.70 Hemoglobin 15.5 g/dL 12.1 - 17.2 Hematocrit 46.0 % 36.1 - 50.3 Mean Corpuscular Vol 89.1 82.2-97.4 Mean Corpuscular Hemaglobin 30.0 27.6-33.3 Mean Corpuscular Hemo Concen 33.6 33.0-34.8 RDW 12.9 11.6-13.7 Platelets 301 10^3/ul 150-400 Mean Platelet Volume 8.4 7.4-10.4 Laboratory test finding 06/20/2002 TSH 1.49 0.4-4.2 Comp Metabolic ([facility]) 06/20/2002 Albumin 4.6 3.8-5.5 Alkaline Phosphatase 76 U/L 36-117 Bilirubin, Total 0.4 mg/dL 0.2-1.3 BUN 14 7-26 Calcium 9.9 mg/dL 8.6-10.0 Creatinine 0.8 mg/dL 0.6-1.4 Glucose 95 mg/dL 70 - 118 Ast Sgot 20 U/L 5-40 Alt (SGPT) 16 10-40 Total Protein 7.2 g/dL 6.4-8.3 Sodium 149 134-149 Potassium 5.2 3.6-5.5 Chloride 105 mEq/L 94-112 Co2 28 21-32 Globulin 2.6 2.0-4.8 Albumin / Globulin Ratio 1.8 0.6-2.2 BUN/Creatinin Ratio 17.5 8.0-36 Laboratory test finding 06/20/2002 FSH 116.0 mIU/ml 29 Laboratory test finding 02/08/2002 Clotest NEGATIVE Negative Laboratory test finding 08/10/2000 Amylase 43 U/L 28-100 Comp Metabolic ([facility] 08/10/2000 Sodium 144 mmol/L 135-145 Potassium 3.7 mmol/L 3.5-5.0 Chloride 103 mmol/L 95-108 Co2 25.2 mmol/L 21-33 Glucose 92 mg/dL 70-105 BUN 7 mg/dL 6-22 Creatinine 0.9 mg/dL 0.5-1.4 BUN/Creatinin Ratio 7.8 Low 8-20 Calcium 9.5 mg/dL 8.7-10.2 Total Protein 6.8 GM/DL 6.2-8.1 Albumin 4.1 GM/DL 3.6-5.4 Globulin 2.7 GM/DL 2-4 Albumin / Globulin Ratio 1.5 1-3 Bilirubin, Total 0.6 mg/dL 0.1-1.0 Alkaline Phosphatase 86 U/L 30-110 Alt (SGPT) 42 U/L High 1-40 Ast (Sgot) 87 U/L High 1-34 CBC Electronic ([facility] 08/10/2000 WBC 9.0 CUMM 4.8-10.8 RBC 4.90 CUMM 4.2-5.4 Hemoglobin 15.2 g/dL 12.0-16.0 Hematocrit 46 % 35-47 Mean Corpuscular Vol 93 um3 79-97 Mean Corpuscular Hemaglobin 31 pg 27-31 Mean Corpuscular Hemo Concen 34 g/dL 32-36 RDW 12 % 10.5-15 Platelets 273 CUMM 150-450 Mean Platelet Volume 7.7 um3 7.4-10.4 Granulocytes 67.0 % 38-83 Lymphocytes 20.2 % 20-45 Monocytes 5.8 % 1-9 Eosinophil 5.8 % 0-6 Basophil% 1.2 % 0-2 Abs Lymphs 1.8 1.0-4.8 Abs Mononuclear 0.5 0-0.8 Abs Grans 6.1 1.5-7.7 Abs Eosinophils 0.5 0-0.6 Abs Basophils 0.1 0-0.2 Comp Metabolic ([facility]) 04/07/2000 Albumin 3.8 GM/DL 3.80 - 5.50 Alkaline Phosphatase 62 U/L 39-130 Bilirubin, Total 0.2 mg/dL 0.2-1.3 BUN 8 mg/dL Low 10-26 Calcium 7.8 mg/dL 7.4-9.2 Creatinine 0.8 mg/dL 0.6-1.4 Glucose 89 mg/dL 70 - 118 Ast Sgot 16 U/L 9-44 Alt (SGPT) 11 U/L 10-40 Total Protein 6.8 g/dL 6.3-8.1 Sodium 141 mEq/L 134-149 Potassium 4.4 mEq/L 3.6-5.5 Chloride 104 mEq/L 94-112 Co2 24 21-32 Globulin 3.0 2.0-4.8 Albumin / Globulin Ratio 1.3 0.6-2.2 BUN/Creatinin Ratio 10.0 8.0-36 Lipid Profile ([facility]) 04/07/2000 Cholesterol 193 mg/dL 140-200 Triglyceride 45 mg/dL 30-150 HDL-Chol 42.2 mg/dL 30-70 VLDL 9 mg/dL 0-50 LDL-Calculated 142 0-160 CBC With Diff (a) 04/07/2000 WBC 6.5 /Hpf 3.6 - 9.6 Lymphocytes 40.5 % 20.5 - 51.1 Monocytes 4.8 % 1.7 - 9.3 Granulocytes 54.7 % 42.2 - 75.2 Lymphocytes 2.6 10^3/uL 0.7 - 4.9 Monocytes 0.3 10^3/uL 0.1 - 0.9 Granulocytes 3.6 10^3/uL 1.5 - 7.2 RBC 4.97 /Hpf 3.90 - 5.70 Hemoglobin 15.5 g/dL 12.1 - 17.2 Hematocrit 45.6 % 36.1 - 50.3 Mean Corpuscular Vol 91.8 fl 82.2 - 97.4 Mean Corpuscular Hemaglobin 31.3 pg 27.6 - 33.3 Mean Corpuscular Hemo Concen 34.1 g/dL 33.0 - 34.8 RDW 12.8 % 11.6 - 13.7 Platelets 266 10^3/ul 150-400 Mean Platelet Volume 7.9 fl 7.4 - 10.4 Comp Metabolic [place] 10/23/1999 Sodium 139 mmol/L 135-145 Potassium 3.9 mmol/L 3.5-5.0 Chloride 104 mmol/L 95-108 Co2 24.8 mmol/L 21-33 Glucose 131 mg/dL High 70-105 BUN 18 mg/dL 6-22 Creatinine 0.7 mg/dL 0.5-1.4 BUN/Creatinin Ratio 25.7 High 8-20 Calcium 8.7 mg/dL 8.7-10.2 Total Protein 6.9 GM/DL 6.2-8.1 Albumin 4.0 GM/DL 3.6-5.4 Globulin 2.9 GM/DL 2-4 Albumin / Globulin Ratio 1.4 1-3 Bilirubin, Total 0.4 mg/dL 0.1-1.0 Alkaline Phosphatase 74 U/L 30-110 Ast (Sgot) 17 U/L 1-34 CBC Electronic ([facility] 10/23/1999 WBC 11.8 CUMM High 4.8-10.8 RBC 4.65 CUMM 4.2-5.4 Hemoglobin 14.1 g/dL 12.0-16.0 Hematocrit 42 % 35-47 Mean Corpuscular Vol 90 um3 79-97 Mean Corpuscular Hemaglobin 30 pg 27-31 Mean Corpuscular Hemo Concen 34 g/dL 32-36 RDW 12 % 10.5-15 Platelets 282 CUMM 150-450 Mean Platelet Volume 7.8 um3 7.4-10.4 Granulocytes 75.1 % 38-83 Lymphocytes 17.5 % Low 20-45 Monocytes 3.2 % 1-9 Eosinophil 3.0 % 0-6 Basophil% 1.2 % 0-2 Abs Lymphs 2.1 1.0-4.8 Abs Mononuclear 0.4 0-0.8 Abs Grans 8.8 High 1.5-7.7 Abs Eosinophils 0.4 0-0.6 Abs Basophils 0.1 0-0.2 1 consistent w/ previous results 2 FASTING 3 Rod Mill Tender: [id number] VERONICA Chavez 4 Rod Mill Tender: [id number] VIRGINIE Shafer 5 Rod Mill Tender: [id number] LENNY MORAES 6 Rod Mill Tender: [id number] LENNY MORAES 7 Rod Mill Tender: [id number] LENNY MORAES 8 SEE RESULT BELOW Name: YOLI HDZ : [address]: Cameron Fry MD Acct: [id number] Unit: [id number] AGE: 65 Location: [place] Re08/13/16 SEX: F Status[place] [facility] SPEC: [id number] NIC: 08/13/16- SUBM DR: Cameron Fry MD REQ: [id number] RECD: 08/13/16-0 STATUS: MITRA METZGER DR: Carson Wells MD _ ORDERED: LEVEL IV/2 THIS IS A CORRECTED REPORT 08/16/16-1310 Corrected Report FINAL DIAGNOSIS 1. Breast, right, reduction mammoplasty: -- Benign breast tissue and unremarkable skin (866 g). 2. Breast, left, reduction mammoplasty: -- Benign breast tissue and unremarkable skin (930g). This corrected report is generated to change a typographical error in the diagnosis. The diagnosis remains unchanged. PRE-OPERATIVE DIAGNOSIS Bilateral symptomatic breast hypertrophy. GROSS DESCRIPTION 1. The specimen is received in formalin labeled, Right Breast Tissue, and consists of an 866 g, 28.5 x 20.0 by up to 4.0 cm aggregate of yellow-pink, irregular, fibrofatty, soft tissue fragments. A few of the fragments are partially surfaced by louie-pink , wrinkled skin. The cut surface consists predominantly of yellow, lobulated adipose tissue with scant interspersed louie-white fibromembranous tissue. A discrete lesion is not identified. Received separately in the same container is a 9.0 x 8.0 by up to 0.7 cm aggregate of louie-pink, irregular, wrinkled skin fragments. Volunteer Services Supervisor sections, two cassettes. 2. The specimen is received in formalin labeled, Left Breast Tissue, and consists of a 930 g, 23.0 x 20.5 by up to 3.5 cm aggregate of yellow-pink, irregular, fibrofatty, soft tissue fragments. A few of the fragments are partially surfaced by louie-pink, wrinkled skin. The cut surface consists predominantly of yellow, lobulated adipose tissue with rare focal hemorrhage and scant interspersed louie-white, fibrous tissue. A discrete lesion is not identified. Received separately in the same container is an 8.0 x 6.5 by up to 0.7 cm aggregate of louie-pink, irregular, wrinkled skin fragments. Volunteer Services Supervisor sections, two CONTINUED ON NEXT PAGE * ML=Testing performed at Main Lab DEPARTMENT OF PATHOLOGY, [address] [place] [address] Kingston Sanchez M.D. Director ANGELICA # [id number] RUN DATE: 08/16/16 [facility] LAB LIVE PAGE 2 Patient: YOLI HDZ [id number] (Continued) GROSS DESCRIPTION (Continued) GROSS DESCRIPTION (Continued) cassettes. Signed (signature on file) Bernice Negron MD [id number] END OF REPORT * ML=Testing performed at Main Lab DEPARTMENT OF PATHOLOGY, [address] [place] [address] iKngston Sanchez M.D. Director ANGELICA # [id number] 9 SRC:vaginal 1 affirm swab 10 Source of Specimen: vaginal 1 affirm swab 11 Source of Specimen: vaginal 1 affirm swab 12 Source of Specimen: vaginal 1 affirm swab 13 consistent w/ previous results 14 consistent w/ previous results 15 consistent w/ previous results 16 SEE RESULT BELOW Name: YOLI HDZ : [address]: Madhu Long MD Acct: [id number] Unit: [id number] AGE: 64 [facility] Re07/07/15 SEX: F Status: DEP ER SPEC: [id number] NIC: 07/07/15-1725 [facility] DR: Madhu Long MD REQ: [id number] RECD: 07/08/15-1235 STATUS: COMP OTHR DR: Carson Wells MD _ SOURCE: URINE SPDESC: ORDERED: Urine Culture Procedure Result Verified Site Urine Culture Final 07/10/15- 1048 ML Organism 1 NORMAL ADELFO Tsaile Count 50-75,000 (Many) CFU/ML * ML - MAIN LAB ([facility]) . END OF REPORT * ML=Testing performed at Main Lab DEPARTMENT OF PATHOLOGY, [address] [place] [address] Kingston Sanchez M.D. Director [facility] # [id number] 17 RESULTS VERIFIED BY REPEAT ANALYSIS 18 FASTING 19 Because ethnic data is not always readily available, this report includes an eGFR for both -Americans and non- Americans. The National Kidney Disease Education Program (NKDEP) does not endorse the use of the MDRD equation for patients that are not between the ages of 18 and 70, are , have extremes of body size, muscle mass, or nutritional status, or are non- or non-. According to the National Kidney Foundation, irrespective of diagnosis, the stage of the disease is based on the level of kidney function: Stage Description GFR(mL/min/1.73 m(2)) 1 Kidney damage with normal or decreased GFR 90 2 Kidney damage with mild decrease in GFR 60-89 3 Moderate decrease in GFR 30-59 4 Severe decrease in GFR 15-29 5 Kidney failure <15 (or dialysis) 20 Therapeutic target for the treatment of diabetes Mellitus patients is <7% HBA1C, and in selective patients <6.0%.Please refer to [place] [employer] Diabetic care guidelines for further information. 21 result jl'd 22 RESULT JL'D 23 RESULT JL'D 24 FASTING 25 CONSISTENT WITH PREVIOUS RESULTS 26 CONSISTENT WITH PREVIOUS RESULTS 27 CONSISTENT WITH PREVIOUS RESULTS 28 CONSISTENT WITH PREVIOUS RESULTS 29 Follicular Phase: 4.0-13.0 mIU/mL Ovulatory Peak: 5.0-22.0 mIU/mL Luteal Phase: 2.0-13.0 mIU/mL Post-Menopausal: 20.0-138.0mIU/mL MALE: 1.0-8.0 mIU/mL . Procedures Date CPT Code Description Status Comment 08/27/2017 Mammogram Completed 03/04/2017 78262 Finger Or Heel Stick Completed 05/29/2016 Mammogram Completed 12/25/2015 83801 Electrocardiogram Complete Completed 04/21/2015 99623 Dxa Bone Density Study One Or More Sites Completed Axial Skeleton 04/07/2015 Bone Mineral Density Test Completed osteopenia 01/16/2015 Mammogram Completed 10/01/2014 Colonoscopy Completed normal 11/16/2013 Mammogram Completed 05/10/2013 25768 Electrocardiogram Complete Completed 10/08/2012 Mammogram Completed 09/14/2012 71214 Electrocardiogram Complete Completed 09/14/2012 95059 Vision Test- screening test of visual Completed acuity, quantitative, bila 08/20/2011 Mammogram Completed 08/17/2010 Mammogram Completed 08/10/2010 84362 Electrocardiogram Complete Completed 01/06/2009 Mammogram Completed 02/05/2007 89422 Electrocardiogram Complete Completed 02/05/2007 11802 Pure Tone Hearing Test, Air Completed 01/01/2007 Mammogram Completed Encounters Type Date Location Provider CPT E/M Dx Office Visit 08/11/2017 3:00p [facility] Office Carson Wells M.D. 05940 E11.9 F32.89 B35.6 G47.33 E78.4 Office Visit 03/07/2017 3:20p [facility] Office Carson Wells M.D. 49139 E11.9 F32.89 M25.562 Office Visit 01/27/2017 11:00a [facility] Office MIAH Husain 37759 R11.10 R19.7 K52.89 E11.9 Office Visit 12/25/2016 3:00p [facility] Office MIAH Husain 31090 R11.10 R19.7 K52.89 E11.9 Office Visit 11/15/2016 3:20p [facility] Office Carson Wells M.D. 04790 Z23 M25.562 B35.6 G56.22 Office Visit 07/15/2016 3:00p [facility] Office Carson Wells M.D. 70299 E11.9 G47.33 F32.8 I10 E78.2 Office Visit 12/25/2015 9:00a [facility] Office Carson Wells M.D. 95755 E11.9 G47.33 K21.9 I10 M85.9 Z00.00 Z23 B37.3 F32.8 E78.2 R31.2 Office Visit 08/28/2015 10:20a [facility] Office Carson Wells M.D. 88313 v04.81 327.23 250.00 530.81 401.1 272.2 Office Visit 07/26/2015 1:00p [facility] Office Bernice Rivas [facility] 45648 724.5 Office Visit 07/12/2015 10:45a [facility] Office Bernice Rivas [facility] 97403 724.5 Office Visit 03/17/2015 11:00a [facility] Office Carson Wells M.D. 41217 401.1 250.00 327.23 278.00 272.2 Office Visit 12/30/2014 3:20p [facility] Office Carson Wells M.D. 45468 278.00 401.1 250.00 Office Visit 11/11/2014 3:20p [facility] Office Carson Wells M.D. 83228 401.1 327.23 311 278.00 493.90 782.9 Office Visit 05/23/2014 3:20p [facility] Office Carson Wells M.D. 35547 278.00 493.90 327.23 311 782.1 782.3 Office Visit 08/16/2013 10:00a [facility] Office Carson Wells M.D. 54115 311 v04.81 278.00 493.90 327.23 272.4 372.00 Office Visit 05/10/2013 10:00a [facility] Office Carson Wells M.D. 33265 311 278.00 493.90 780.79 V72.83 373.00 Office Visit 01/05/2013 2:20p [facility] Office Carson Wells M.D. 59347 368.40 782.9 Office Visit 11/07/2012 9:00a Main Office Alvin Reyes-Demetri 62435 692.9 Office Visit 09/14/2012 2:40p [facility] Carson Wells M.D. 65496 V04.81 311 278.00 530.81 493.90 782.9 V70.0 V76.41 599.72 327.23 Office Visit 02/14/2012 8:00a [facility] Carson Wells M.D. 91962 719.41 311 780.57 401.1 790.6 Office Visit 08/12/2011 3:00p [facility] Carson Wells M.D. 64643 v04.81 311 278.00 493.90 530.81 Office Visit 08/10/2010 1:20p [facility] Carson Wells M.D. 85521 311 278.00 493.90 530.81 733.90 599.70 472.0 V70.0 V76.41 v04.81 782.9 780.57 599.72 v03.82 Office Visit 06/13/2010 3:40p Main Office Carson Wells M.D. 57200 782.9 Office Visit 04/27/2010 9:00a [facility] Carson Wells M.D. 96320 401.9 311 278.00 V76.41 599.72 Office Visit 10/24/2009 4:00p Main Office Carson Wells M.D. 11964 311 278.00 401.9 Office Visit 02/16/2009 8:20a [facility] Office Carson Wells M.D. 81714 493.90 530.81 311 278.00 401.9 733.90 599.70 Office Visit 12/06/2008 12:40p Main Office Carson Wells M.D. 57851 466.0 Office Visit 08/13/2007 8:00a Main Office Carson Wells M.D. 13209 493.90 530.81 311 278.00 401.1 Office Visit 02/27/2007 3:40p Main Office Carson Wells M.D. 79134 569.3 465.9 Office Visit 02/05/2007 8:20a Main Office Carson Wells M.D. 09761 493.90 530.81 780.57 311 V70.0 569.3 719.46 733.90 Office Visit 12/18/2006 3:00p Main Office Carson Wells M.D. 78399 599.7 311 401.1 381.01 V76.41 Office Visit 09/29/2006 1:30p [facility] Carson Wells M.D. 85825 311 401.1 493.90 V04.81 Office Visit 01/13/2006 3:15p [facility] Carson Wells M.D. 84446 530.81 493.90 780.57 281.9 401.1 599.7 Office Visit 09/05/2005 10:15a Main Office Carson Wells M.D. 55544 530.81 493.90 780.57 281.9 V04.81 Office Visit 06/22/2005 11:10a Main Office Carson Wells M.D. 96132 493.90 530.81 780.57 780.79 782.1 333.99 281.9 272.4 Office Visit 11/20/2004 5:00p Main Office Carson Wells M.D. 53696 493.90 401.1 Office Visit 05/03/2004 10:45a Main Office Carson Wells M.D. 89325 300.4 401.9 530.81 Office Visit 01/05/2004 2:00p Main Office Carson Wells M.D. 34880 719.41 723.1 401.1 Office Visit 02/14/2003 3:20p [facility] Carson Wells M.D. 47854 388.30 492.8 530.81 493.90 Office Visit 06/10/2002 10:00a Main Office Carson Wells M.D. 21852 Office Visit 02/11/2002 12:20p Main Office Kingston Bush M.D. 47326 Office Visit 04/21/2001 2:00p Main Office Kingston Bush M.D. 30241 Office Visit 09/19/2000 9:40a Main Office Kingston Bush M.D. 17559 Plan of Care Future Appointment(s):03/20/2018 8:00 am - Carson Wells M.D. at [facility]01/15/2018 - Brunilda Adame, NPB37.3 Candidiasis of vulva and vaginaComments:- Return to office for re-evaluation with development of fever or worsening of symptoms or if blood sugars are uncontrolled
[2018-01-24 21:28] VITALS: BP 143/64
[2018-01-24] MEDS ORDERED: Fluconazole 100 MG TAB* TAB PO ONE (21:48)
--- NOTE | 2018-01-24 22:03 | UC ---
Kristen Caceres Emily, scribed for Pavel Yen MD on 01/24/18 at 2156 . Complaint Female HPI - HPI Summary HPI Summary: This patient is a 67 year old F presenting to urgent care with a chief complaint of yeast infection that began on 01/15/2018 and worsened this morning. The patient rates the pain 8/10 in severity. Symptoms aggravated by nothing. Symptoms alleviated by nothing. Pt reports being diagnosed with a yeast infection on 01/15/2018 and diagnosed with a topical medication. - History Of Current Complaint Chief Complaint: UCGU Stated Complaint: YEAST INFECTION Time Seen by Provider: 01/24/18 21:42 Hx Obtained From: Patient Onset/Duration: Sudden Onset, Lasting Weeks, Still Present Timing: Constant Severity Initially: Severe Severity Currently: Severe Pain Intensity: 8 Pain Scale Used: 0-10 Numeric Aggravating Factor(s): Nothing Alleviating Factor(s): Nothing Associated Signs And Symptoms: Negative: Fever - Allergies/Home Medications Allergies/Adverse Reactions: Allergies Allergy/AdvReac Type Severity Reaction Status Date / Time ephedrine Allergy Severe HYPERACTIVE Verified 01/24/18 21:30 erythromycin base Allergy Severe Diarrhea Verified 01/24/18 21:30 loperamide Allergy Severe HAND, FACE Verified 01/24/18 21:30 SWELLING Penicillins Allergy Severe Hives Verified 01/24/18 21:30 phenobarbital Allergy Severe HYPERACTIVE Verified 01/24/18 21:30 theophylline Allergy Severe HYPERACTIVE Verified 01/24/18 21:30 Home Medications: Home Medications Desvenlafaxine Succinate [Pristiq] 25 mg PO DAILY 01/24/18 [History Confirmed ] PMH/Surg Hx/FS Hx/Imm Hx Previously Healthy: No Cardiovascular History: Hypertension Respiratory History: Asthma - Surgical History Surgical History: Yes Surgery Procedure, Year, and Place: 1975 BILATERAL TUBAL L[place]ATION, [place]. 1979 HYSTERECTOMY, [facility]. 2000 LAPAROSCOPIC [place]LE[place] [facility] 2013 BILATERAL UPPER EYELID-BLEPHAROPLASTY, [facility]. 2016 BILATERAL BREAST REDUCTION, [facility]. LEFT ELBOW (ULNAR NERVE PROBLEM) - Family History Known Family History: Positive: Other Family History: Osteoperosis - Social History Occupation: Unemployed Lives: With Family Alcohol Use: None Substance Use Type: None Smoking Status (MU): Never Smoked Tobacco Review of Systems Constitutional: Other - Negative fever Genitourinary: Vaginal/Penile Itching, Vaginal/Penile Tenderness All Other Systems Reviewed And Are Negative: Yes Physical Exam - Summary Physical Exam Summary: General: well-appearing, no pain distress Skin: warm, color reflects adequate perfusion, dry Head: normal Eyes: EOMI, VAN ENT: normal Neck: supple, nontender Respiratory: CTA, breath sounds present Cardiovascular: RRR Abdomen: soft, nontender Bowel: present Musculoskeletal: normal, strength/ROM intact Neurological: normal, sensory/motor intact, A&O x3 Psychological: affect/mood appropriate Triage Information Reviewed: Yes Vital Signs: Initial Vital Signs Temp 97.6 F 01/24/18 21:24 Pulse 85 01/24/18 21:24 Resp 16 01/24/18 21:24 BP 143/64 01/24/18 21:24 Pulse Ox 97 01/24/18 21:24 Vital Signs Reviewed: Yes Complaint Female Dx - Course Course Of Treatment: Elevated BP noted advised to follow up with PCP - Differential Dx/Diagnosis Provider Diagnoses: VAGINAL YEAST INFECTION. HTN Discharge - Discharge Plan Condition: Stable Disposition: HOME Prescriptions: Fluconazole 150 MG (NF) [Diflucan 150 mg (NF)] 150 mg PO ONCE #1 tab Terconazole 1 applic [place] DAILY #3 applic Patient Education Materials: Yeast Infection (ED) Referrals: Carson Wells MD [Primary Care Provider] - Additional Instructions: FOLLOW UP WITH YOUR DOCTOR. GET RECHECKED FOR ANY WORSENING OF YOUR CONDITION OR QUESTIONS OR CONCERNS. YOUR BLOOD PRESSURE WAS ELEVATED DURING TODAY'S VISIT; FOLLOW UP WITH YOUR PCP WITHIN ONE WEEK FOR FURTHER EVALUATION. The documentation as recorded by the Kristen javier Emily accurately reflects the service I personally performed and the decisions made by me, Pavel Yen MD.
== END 2018-01-24 22:08 | disposition home or self-care (01) ==
LOC: UCEAST 21:19
DX: B37.3 Candidiasis of vulva and vagina (principal); I10 Essential (primary) hypertension; J45.909 Unspecified asthma, uncomplicated; Z88.0 Allergy status to penicillin; Z88.8 Allergy status to other drugs, medicaments and biological substances
CPT/HCPCS: 99212; A9270-GY; G0463

== ENCOUNTER 2018-05-05 09:31 | Day surgery (SDC) | payer MEDICARE, OTHER ==
[~2018-05-05 09:31] MED LIST changes: +Acetaminophen TAB* 325 MG PO PRN; +Buffered Lidocaine 0.9% SYRIN* 5 ML/SYR SYRINGE INTRADERM ONE; -Buffered Lidocaine 1% SYR 3ML* 3 ML/SYR SYRINGE INTRADERM ONE; -Buffered Lidocaine 1% SYR 3ML* 3 ML/SYR SYRINGE ONE; -Bupivacaine 0.5% SDV PF* 30 ML VIAL ONE; -Clindamycin 900 MG IVPREMIX(* 900 MG/50 ML SDV IV ONE; -KETAMINE HCL* 50 MG/ML 10 ML VIAL ONE; -Lidocaine 1% INJ* 10 MG/ML 30 ML SDV ONE; -Lidocaine 2% PF * 5 ML VIAL ONE; -Midazolam* 1 MG/ML 2 ML VIAL (2 MG) ONE; -Propofol* 10 MG/ML 20 ML BTL IV PUSH ONE; -Sodium Citrate/Citric Acid* 15 ML UDC ONE; -Sodium Citrate/Citric Acid* 15 ML UDC PO ONE; -fentaNYL* 50 MCG/ML 2 ML VIAL (100 MCG VIAL) ONE
[2018-05-05] MEDS ORDERED: Midazolam* 1 MG/ML 2 ML VIAL (2 MG) ONE ×2 (11:35→11:39)
[2018-05-05] MEDS ORDERED: fentaNYL* 50 MCG/ML 2 ML VIAL (100 MCG VIAL) ONE (11:44)
[2018-05-05] MEDS ORDERED: Propofol* 10 MG/ML 20 ML BTL IV PUSH ONE (11:48)
[2018-05-05] MEDS ORDERED: Lidocaine 2% PF * 5 ML VIAL ONE (11:49)
[2018-05-05 12:09] VITALS: BP 140/70
[2018-05-05] MEDS ORDERED: Lidocaine 1%* 5 ML VIAL ONE (13:04)
[2018-05-05] MEDS ORDERED: Phenylephrine 2.5% OPTH.SOL* 2 ML BTL ONE (13:04)
[2018-05-05] MEDS ORDERED: Neomycin/Polymy/Dex OPHTH.OIN* 3.5 GM ONE (13:04)
[2018-05-05] MEDS ORDERED: Cyclopentolate 1% OPTH.SOL* 2 ML BTL ONE (13:04)
[2018-05-05] MEDS ORDERED: Ketorolac 0.5% OPHTH (NF) 0.5 % 5 ML BTL ONE (13:04)
[2018-05-05] MEDS ORDERED: Tropicamide 1% OPTH.SOL* BTL ONE (13:04)
[2018-05-05] MEDS ORDERED: Tetracaine 0.5% OPTH.SOL 4 ML* 1 DROP BTL ONE (13:04)
--- NOTE | 2018-05-05 22:43 | OP ---
DATE OF OPERATION: 05/05/18 [facility] DATE OF : 52 SURGEON: Dr. Steven Britt. REMOTE SENSING ANALYST: None. ANESTHESIA: Topical with intravenous sedation. PRE-OP DIAGNOSIS: Cataract, right eye. POST-OP DIAGNOSIS: Cataract, right eye. OPERATIVE PROCEDURE: Phacoemulsification and cataract extraction with posterior chamber intraocular lens implant, right eye. COMPLICATIONS: None. BLOOD LOSS: None. DESCRIPTION OF PROCEDURE: The patient was brought to the operating room and received a small amount of intravenous sedation. A drop of Tetracaine was placed in the right eye. She was prepped and draped in the usual sterile fashion for ophthalmic surgery and attention was directed to the right eye where a speculum was placed. A paracentesis was created at the 11 o'clock position and 0.1 cc of 1 percent preservative-free Lidocaine was injected into the anterior chamber followed by DisCoVisc. The eye was digitally stabilized while a 2.75 mm keratome was used to create a triplanar clear corneal incision at the 9 o'clock position. A continuous curvilinear capsulorrhexis was created with a cystotome and Utrata forceps. BSS on a cannula was used to hydrodissect the lens from the capsule. Phacoemulsification was performed in a divide-and- conquer technique to create four fragments which were removed. Residual cortical material was removed with irrigation and aspiration. DisCoVisc was used to inflate the capsular bag and AU00T0 17.5 diopter lens was folded and inserted into the capsular bag. DisCoVisc was removed using irrigation and aspiration. BSS on a cannula was used to hydrate the corneal stroma and seal the wound. At the end of the case the pupil was round and the lens was centered. The eye was of normal pressure and the wound was water tight. The speculum was removed and topical Maxitrol ointment was placed on the surface of the eye. The eye was closed, patched and shielded and the patient was sent to the recovery room in stable condition with post operative instructions and follow-up appointment given. [id number]/CPS #: [id number] REED
== END 2018-05-05 12:18 | disposition home or self-care (01) ==
LOC: OREAST 09:31
PROVIDERS: ATTEND Ophthalmology
DX: H25.041 Posterior subcapsular polar age-related cataract, right eye (principal); E11.9 Type 2 diabetes mellitus without complications; Z79.84 Long term (current) use of oral hypoglycemic drugs; I10 Essential (primary) hypertension; E78.5 Hyperlipidemia, unspecified; J45.909 Unspecified asthma, uncomplicated; G47.33 Obstructive sleep apnea (adult) (pediatric); Z68.38 Body mass index [BMI] 38.0-38.9, adult; F32.9 Major depressive disorder, single episode, unspecified
CPT/HCPCS: A9270-GY; J2250; J2704; J3010; V2632

== ENCOUNTER 2018-05-12 07:36 | Day surgery (SDC) | payer MEDICARE, OTHER ==
[2018-05-12] MEDS ORDERED: Midazolam* 1 MG/ML 2 ML VIAL (2 MG) ONE ×2 (08:05→08:38)
[2018-05-12] MEDS ORDERED: fentaNYL* 50 MCG/ML 2 ML VIAL (100 MCG VIAL) ONE (08:05)
[2018-05-12] MEDS ORDERED: Acetaminophen TAB* 325 MG ONE (08:58)
[2018-05-12] MEDS ORDERED: Cyclopentolate 1% OPTH.SOL* 2 ML BTL ONE (09:07)
[2018-05-12] MEDS ORDERED: Phenylephrine 2.5% OPTH.SOL* 2 ML BTL ONE (09:07)
[2018-05-12] MEDS ORDERED: Ketorolac 0.5% OPHTH (NF) 0.5 % 5 ML BTL ONE (09:07)
[2018-05-12] MEDS ORDERED: Tetracaine 0.5% OPTH.SOL 4 ML* 1 DROP BTL ONE (09:07)
[2018-05-12] MEDS ORDERED: Neomycin/Polymy/Dex OPHTH.OIN* 3.5 GM ONE (09:07)
[2018-05-12] MEDS ORDERED: Tropicamide 1% OPTH.SOL* BTL ONE (09:07)
[2018-05-12] MEDS ORDERED: Lidocaine 1%* 5 ML VIAL ONE (09:07)
[2018-05-12] MEDS ORDERED: Phenylephr/Ketorolac 1%/0.3% OPH DROP BTL ONE (09:10)
[2018-05-12 09:14] VITALS: BP 160/66
--- NOTE | 2018-05-13 00:29 | OP ---
DATE OF OPERATION: 05/12/18 [facility] DATE OF : 52 SURGEON: Dr. Steven Britt. FINANCIAL SERVICES SPECIALIST: None. ANESTHESIA: Topical with intravenous sedation. PRE-OP DIAGNOSIS: Cataract, left eye. POST-OP DIAGNOSIS: Cataract, left eye. OPERATIVE PROCEDURE: Phacoemulsification and cataract extraction with posterior chamber intraocular lens implant, left eye. COMPLICATIONS: None. BLOOD LOSS: None. DESCRIPTION OF PROCEDURE: The patient was brought to the operating room and received a small amount of intravenous sedation. A drop of Tetracaine was placed in her left eye. She was prepped and draped in the usual sterile fashion for ophthalmic surgery and attention was directed to the left eye where a speculum was placed. A paracentesis was created at the 5 o'clock position and 0.1 cc of 1 percent preservative-free Lidocaine was injected into the anterior chamber followed by DisCoVisc. The eye was digitally stabilized while a 2.75 mm keratome was used to create a triplanar clear corneal incision at the 3 o'clock position. A continuous curvilinear capsulorrhexis was created with a cystotome and Utrata forceps. BSS on a cannula was used to hydrodissect the lens from the capsule. Phacoemulsification was performed in a divide-and- conquer technique to create four fragments which were removed. Residual cortical material was removed with irrigation and aspiration. DisCoVisc was used to inflate the capsular bag and an AU00T0 17.5 diopter lens was folded and inserted into the capsular bag. DisCoVisc was removed using irrigation and aspiration. BSS on a cannula was used to hydrate the corneal stroma and seal the wound. At the end of the case the pupil was round and the lens was centered. The eye was of normal pressure and the wound was water tight. The speculum was removed and topical Maxitrol ointment was placed on the surface of the eye. The eye was closed, patched and shielded and the patient was sent to the recovery room in stable condition with post operative instructions and follow-up appointment given. [id number]/CPS #: [id number] REED
== END 2018-05-12 09:09 | disposition home or self-care (01) ==
LOC: OREAST 07:36
PROVIDERS: ATTEND Ophthalmology
DX: H25.042 Posterior subcapsular polar age-related cataract, left eye (principal); J45.909 Unspecified asthma, uncomplicated; E11.9 Type 2 diabetes mellitus without complications; Z79.84 Long term (current) use of oral hypoglycemic drugs; I10 Essential (primary) hypertension; G47.33 Obstructive sleep apnea (adult) (pediatric); Z68.39 Body mass index [BMI] 39.0-39.9, adult; E78.5 Hyperlipidemia, unspecified; K21.9 Gastro-esophageal reflux disease without esophagitis; F32.9 Major depressive disorder, single episode, unspecified
CPT/HCPCS: A9270-GY; C9447; J2250; J3010; V2632

== ENCOUNTER 2022-06-04 09:49 | Observation (INO) ==
[~2022-06-04 09:49] MED LIST changes: -Acetaminophen TAB* 325 MG PO PRN; -Buffered Lidocaine 0.9% SYRIN* 5 ML/SYR SYRINGE INTRADERM ONE; +Buffered Lidocaine 1% SYRIN 1 ml INTRADERM ONE; +Lactated Ringers 1000 ml BAG 1,000 ML IV SCH
[2022-06-04] MEDS ORDERED: Clindamycin 900 MG/D5W BAG 900 MG/50 ML BAG IVPB ONE (10:12)
[2022-06-04] MEDS ORDERED: Naloxone 0.4 mg VIAL 0.4 mg/ml 1 ml VIAL IV PRN (11:09)
[2022-06-04] MEDS ORDERED: Prochlorperazine 5 mg/ml 2 ml VIAL (10 mg) IV PRN (11:09)
[2022-06-04] MEDS ORDERED: ROPIVACAINE 5 MG/ML 30 ML BTL (0.5%) ONE ×2 (12:13→12:59)
[2022-06-04] MEDS ORDERED: Midazolam 2 mg/2 ml VIAL 1 mg/ml 2 ml VIAL (2 mg) ONE (12:16)
[2022-06-04] MEDS ORDERED: fentaNYL 100 mcg/2 ml 50 MCG/ML VIAL ONE (12:16)
[2022-06-04] MEDS ORDERED: Lidocaine 2% PF 5 ML VIAL ONE (12:22)
[2022-06-04] MEDS ORDERED: Ondansetron 4 mg VIAL 2 MG/ML 2 ml VIAL ONE (12:22)
[2022-06-04] MEDS ORDERED: Propofol 10 MG/ML 20 ML BTL ONE (12:22)
[2022-06-04] MEDS ORDERED: Dexamethasone IV 4 MG/ML VIAL 1 ml VIAL ONE (12:22)
[2022-06-04] MEDS ORDERED: fentaNYL 250 mcg/5 ml 50 MCG/ML 5 ml VIAL (250 MCG) ONE (12:22)
[2022-06-04] MEDS ORDERED: Ondansetron ODT 4 mg TAB 4 MG TAB PO PRN (14:48)
[2022-06-04] MEDS ORDERED: Magnesium Hydroxide LIQ 30 ML UDC PO PRN (14:48)
[2022-06-04] MEDS ORDERED: Morphine 2 MG/ML SYRINGE IV PRN (14:48)
[2022-06-04] MEDS ORDERED: Ondansetron 4 mg VIAL 2 MG/ML 2 ml VIAL IV PRN (14:48)
[2022-06-04] MEDS ORDERED: Lactulose 30 ml UDC PO PRN (14:48)
[2022-06-04] MEDS ORDERED: Albuterol HFA INHALER 8 gm MDI INH PRN (14:59)
[2022-06-04] MEDS ORDERED: Lactated Ringers 1000 ml BAG 1,000 ML IV SCH (15:00)
[2022-06-04] MEDS ORDERED: HYDROmorphone 0.5 MG/0.5 ML SYRINGE ONE (15:51)
[2022-06-04] MEDS ORDERED: HYDROmorphone 1 MG/1 ML SYRINGE ONE (16:27)
[2022-06-04] MEDS: HYDROmorphone 1 MG/1 ML SYRINGE IV PRN ×4 (16:27→16:47)
[2022-06-04] MEDS ORDERED: Prochlorperazine 5 mg/ml 2 ml VIAL (10 mg) ONE (16:36)
[2022-06-04] MEDS ORDERED: Dextrose 50% Syringe 50 ml 25 GM/50 ML SYRINGE IV PUSH PRN (17:15)
[2022-06-04] MEDS: Clindamycin 600 MG/D5W BAG 600 MG/50 ML BAG IV SCH (22:10)
[2022-06-04] MEDS: CMCS: Desvenlafaxine 50 mg TAB (NF) PO SCH (22:14)
[2022-06-04] MEDS: Magnesium Hydroxide LIQ 30 ML UDC PO SCH (22:17)
[2022-06-05] MEDS: Clindamycin 600 MG/D5W BAG 600 MG/50 ML BAG IV SCH ×2 (05:58→13:40)
[2022-06-05 06:18] LABS: Hematocrit 37 % (35-47); Mean Platelet Volume 7.7 fL (7.4-10.4); Platelet Count 246 10^3/uL (150-450)
[2022-06-05 06:37] LABS: Calcium 9.1 mg/dL (8.6-10.3); Potassium 4.9 mmol/L (3.5-5.0)
[2022-06-05 06:43] LABS: eGFR CKD-EPI 49.7 (>60)
[2022-06-05] MEDS: Mometasone/Formoter 200/5 MDI INH SCH ×2 (07:25→21:19)
[2022-06-05] MEDS: Magnesium Hydroxide LIQ 30 ML UDC PO SCH ×2 (08:22→21:22)
[2022-06-05] MEDS: Vitamin THERAPEUTIC TAB PO SCH (08:23)
[2022-06-05 12:50] LABS: Urine Appearance Clear; Urine Color Yellow; Urine Glucose Trace (100mg/dL) (Negative); Urine Specific Gravity 1.023 (1.002-1.030); Urine Urobilinogen 0.2 (Negative) (Negative); Urine pH 5.5 (5.0-9.0)
[2022-06-05 12:51] LABS: Urine Bilirubin Negative (Negative); Urine Blood Trace (Intact) (Negative); Urine Ketones Negative (Negative); Urine Nitrite Negative (Negative); Urine Protein Negative (Negative)
[2022-06-05 13:00] LABS: Urine Bacteria 1+ (Absent); Urine Red Blood Cell Trace(0-2/hpf) (Absent); Urine Squamous Epithelial Cell Present (Absent); Urine White Blood Cell Trace(0-5/hpf) (Absent)
[2022-06-05] MEDS ORDERED: Senna TAB 8.6 mg TAB PO PRN (13:29)
[2022-06-05] MEDS ORDERED: Polyethylene Glycol 3350 17 GM PACKET PO PRN (13:29)
[2022-06-05 19:05] LABS: ABS Eosinophils 0.1 10^3/ul (0-0.6); ABS Monocytes 0.7 10^3/ul (0-0.8); Eosinophil % 0.9 %; Hematocrit 36 % (35-47); Lymphocyte % 25.2 %; Mean Corpuscular HGB Conc 33 g/dL (31-36); Mean Corpuscular Hemoglobin 30 pg (27-31); Mean Corpuscular Volume 92 fL (80-97); Mean Platelet Volume 7.5 fL (7.4-10.4); Platelet Count 234 10^3/uL (150-450); Red Blood Count 3.97 10^6 /uL (3.70-4.87); Red Cell Distribution Width 14 % (10-15); White Blood Count 11.9 10^3/uL (3.5-10.8)
[2022-06-05 19:44] LABS: Albumin 3.9 g/dL (3.2-5.2); Albumin/Globulin Ratio 1.7 (1-3); Calcium 8.9 mg/dL (8.6-10.3); Globulin 2.3 g/dL (2-4); Magnesium 2.2 mg/dL (1.9-2.7); Potassium 4.2 mmol/L (3.5-5.0); Total Bilirubin 0.5 mg/dL (0.2-1.0); Total Protein 6.2 g/dL (6.4-8.9); eGFR CKD-EPI 48.2 (>60)
[2022-06-05] MEDS ORDERED: NS 0.9% 1,000 ML IV ONE (19:45)
[2022-06-05] MEDS ORDERED: NS 0.9% 1000 ml BAG 1,000 ML IV ONE (19:54)
[2022-06-05] MEDS ORDERED: NS 0.9% 1,000 ML IV SCH (20:15)
[2022-06-05] MEDS ORDERED: cefTRIAXone 1 gm/50 mL D5W 1 GM/50 ML BAG IV SCH (20:30)
[2022-06-05] MEDS: CMCS: Desvenlafaxine 50 mg TAB (NF) PO SCH (21:19)
[2022-06-06 05:48] LABS: Hematocrit 35 % (35-47); Hemoglobin 11.7 g/dL (12.0-16.0); Mean Platelet Volume 7.6 fL (7.4-10.4); Platelet Count 228 10^3/uL (150-450)
[2022-06-06 06:26] LABS: Calcium 8.7 mg/dL (8.6-10.3); Potassium 4.4 mmol/L (3.5-5.0); eGFR CKD-EPI 62.1 (>60)
[2022-06-06] MEDS: Mometasone/Formoter 200/5 MDI INH SCH (07:35)
[2022-06-06] MEDS: Vitamin THERAPEUTIC TAB PO SCH (09:47)
[2022-06-06] MEDS: Magnesium Hydroxide LIQ 30 ML UDC PO SCH (09:49)
[2022-06-06 12:05] VITALS: BP 143/77
[2022-06-06 14:44] LABS: Rapid COVID-19 Molecular Undetected (Undetected)
[2022-06-09] MEDS ORDERED: NFT: Dulaglutide (NF) 1.5 MG/0.5 ML SYRINGE SUBCUT SCH (09:00)
== END 2022-06-06 14:12 ==
LOC: SSU 09:49 → OR 09:49 → SSU 06-06 10:01
PROVIDERS: ADMIT Orthopaedic Surgery Adult Reconstructive Orthopaedic Surgery; ATTEND Orthopaedic Surgery Adult Reconstructive Orthopaedic Surgery